=== PATIENT | male | born 1940 | race Caucasian/White ===

== ENCOUNTER → 2017-10-20 | Outpatient (CLI) | payer MEDICARE ==
--- NOTE | 2017-10-25 09:33 | RSPPFT ---
DATE OF PROCEDURE: 10/20/17 COMMENTS: Spirometry with FVC of 3.3 predicted 3.9, FEV1 of 2.3 predicted 3.1, [id number] ratio at 72% predicted 78%. Lung volumes show mild air trapping with RV at 2.9 predicted 2.5. DLCO is decreased to 53% of predicted. The FEF 25-75 is 1.5 predicted 3.0 implying mild obstructive lung defect with minimal air trapping. IMPRESSION:
== END ==
LOC: HRSP 12:55
PROVIDERS: ATTEND Internal Medicine Pulmonary Disease
DX: J45.909 Unspecified asthma, uncomplicated (principal)
CPT/HCPCS: 94060; 94618; 94726; 94729

== ENCOUNTER 2018-04-03 12:47 | Inpatient (IN) ==
--- NOTE | 2018-04-03 13:27 | ED ---
HPI General Chief Complaint: Fall Stated Complaint: Fall Time Seen by Provider: 04/03/18 13:05 Source: patient and EMS Mode of arrival: EMS Limitations: no limitations History of Present Illness HPI Narrative: 77-year-old male the presents to the ED for evaluation of right hip injury. Patient states that he was in a parking lot when he tripped and fell into his right hip. He denies hitting his head. He denies losing consciousness. He was not able to get up on his own. EVAC was called. Per EVAC there is rotation of the right leg and has a lot of pain with any movement. Patient himself declined any pain medication stating that his pain is not bad unless he is moved. Patient states that currently his pain is 4 out of 10. Per patient whenever he moves it does become 10 out of 10 and he can walk on it. He denies any numbness, drooling, weakness. No other injuries reported. No arm or leg pain. No back or neck pain. Denies any history of previous injuries to the hip. Per patient he does have a history of asthma but that the only other medical problem that he has. Takes no blood thinners. No other injuries reported. Has no orthopedic doctor. Related Data Home Medications Medication Instructions Recorded Confirmed fluticasone-salmeterol [Advair 1 puff INHALATION BID 04/03/18 04/03/18 Diskus] Allergies Allergy/AdvReac Type Severity Reaction Status Date / Time No Known Allergies Allergy Unverified 04/03/18 13:11 Review of Systems ROS: all other systems reviewed are negative [facility] Medical History Medical History Asthma (Acute) Surgical History Surgical History No history of previous surgery (Acute) Social History Social History Substance History: No History of Abuse Smoking Status: Former smoker How Often Do You Have a Drink Containing Alcohol: Never Recent Travel in [facility] within the Last 8 Weeks: No Recent Out of Country Travel within the Last 8 Weeks: No Immunization History Tetanus Immunization: Unsure Exam Narrative Exam Narrative: GENERAL: Well appearing SKIN: Focused skin assessment warm/dry. HEAD: Atraumatic. Normocephalic. EYES: Pupils equal and round. No scleral icterus. No injection or drainage. ENT: No nasal bleeding or discharge. Mucous membranes pink and moist. Tongue is midline. No uvula deviation. NECK: Trachea midline. No JVD. CARDIOVASCULAR: Regular rate and rhythm. No murmur appreciated. RESPIRATORY: No accessory muscle use. Clear to auscultation. Breath sounds equal bilaterally. GASTROINTESTINAL: Abdomen soft, non-tender, nondistended. Hepatic and splenic margins not palpable. MUSCULOSKELETAL: No obvious deformities. No clubbing. No cyanosis. No edema. Full range of motion of the most extremities with exception of the right hip. Patient has a lot of pain with any movement of the right hip. Patient does have what appears to be external rotation of the right hip. Sensation is intact bilaterally. Some shortening of the right leg compared to the left. Minimal however. 2+ pulses bilaterally. NEUROLOGICAL: Awake and alert. No obvious cranial nerve deficits. Motor grossly within normal limits. Normal speech. PSYCHIATRIC: Appropriate mood and affect; insight and judgment normal. Course Initial Documented Vital Signs Temperature 97.9 F 04/03/18 13:11 Pulse Rate 68 04/03/18 13:11 Respiratory Rate 17 04/03/18 13:11 Blood Pressure 179/95 H 04/03/18 13:11 Pulse Oximetry 97 04/03/18 13:11 Last Documented Vital Signs Temperature 97.9 F 04/03/18 13:11 Pulse Rate 68 04/03/18 15:05 Respiratory Rate 17 04/03/18 15:05 Blood Pressure 205/88 H 04/03/18 15:05 Pulse Oximetry 98 04/03/18 15:05 Medical Decision Making [facility] Narrative Medical decision making narrative: 77-year-old male the presents to the ED for evaluation of right leg injury. Patient was properly examined and was found to have signs and symptoms consistent with appears to be fracture. X-ray and labs were ordered. X-ray and labs showed right hip fracture. Otherwise unremarkable. Case discussed with my attending who agrees with plan. Case discussed with Dr. Caldera who states to keep patient for now n.p.o. as he could have surgery tonight. Case discussed with Dr. Dunn who agrees admission to her service. Patient was admitted for evaluation of the hip fracture. Medical Screen Exam Complete: Yes Emergency Medical Condition: Yes Differential Diagnosis Differential Diagnosis: Fracture versus bruise versus contusion versus dislocation Medical Records Medical records reviewed: Yes I reviewed the patient's medical records. Lab Data Lab results reviewed: Yes I reviewed the patient's lab results. Result diagrams: 04/03/18 13:20 04/03/18 13:20 Lab Results 04/03/18 04/03/18 04/03/18 Range/Units 13:20 13:20 13:20 WBC 5.5 (4.0-11.0) th/mm3 RBC 3.39 L (4.50-5.90) mil/mm3 Hgb 11.0 L (13.0-17.0) gm/dL Hct 32.6 L (39.0-51.0) % MCV 96.3 (80.0-100.0) fL MCH 32.3 (27.0-34.0) pg MCHC 33.6 (32.0-36.0) % RDW 14.8 (11.6-17.2) % Plt Count 131 L (150-450) th/mm3 MPV 7.9 (7.0-11.0) fL Neut % (Auto) 79.9 H (16.0-70.0) % Lymph % (Auto) 8.3 L (9.0-44.0) % [place] % (Auto) 6.9 (0.0-8.0) % Eos % (Auto) 4.4 H (0.0-4.0) % Baso % (Auto) 0.5 (0.0-2.0) % Neut # (Auto) 4.4 (1.8-7.7) th/mm3 Lymph # (Auto) 0.5 L (1.0-4.8) th/mm3 [place] # (Auto) 0.4 (0.0-0.9) th/mm3 Eos # (Auto) 0.2 (0.0-0.4) th/mm3 Baso # (Auto) 0.0 (0.0-0.2) th/mm3 WBC Differential . Differential Comment Auto diff final PT 11.4 (9.8-11.6) sec INR 1.1 Ratio APTT 26.8 (24.3-30.1) sec Sodium 142 (136-145) meq/L Potassium 5.0 (3.5-5.1) meq/L Chloride 110 H (98-107) meq/L Carbon Dioxide 25.1 (21.0-32.0) meq/L Anion Gap 7 (5-15) meq/L BUN 24 H (7-18) mg/dL Creatinine 1.67 H (0.60-1.30) mg/dL Estimated GFR 40 L (>89) mL/min Random Glucose 102 (74-106) mg/dL Calcium 8.2 L (8.5-10.1) mg/dL Imaging Data Attestation: I personally reviewed and interpreted this imaging study as follows : Radiologist's impression: Chest X-Ray 04/03/18 13:11 CONCLUSION: 1. Negative portable chest status post trauma. Hip X-Ray 04/03/18 13:11 CONCLUSION: 1. Right femoral intertrochanteric fracture, as above. ECG Data Attestation: I personally reviewed and interpreted this ECG as follows: Interpretation: EKG shows sinus rhythm with no sign of acute ischemia and arrhythmia. Read by me and attending. Discharge Plan Discharge Disposition Patient Disposition: 30 Still Patient Discharge Details Diagnosis: Closed hip fracture Physicians Team ED Provider: Jane Prajapati ED Midlevel Provider: Joshua Caldera Primary Care Provider: UNKNOWN, Attending Provider: Camilla Dunn Other Providers: Florentin Caldera Status ED Status: Admitted Patient
[2018-04-03 13:28] LABS: Baso % (Auto) 0.5 % (0.0-2.0); Eos # (Auto) 0.2 th/mm3 (0.0-0.4); Eos % (Auto) 4.4 % (0.0-4.0); Hematocrit 32.6 % (39.0-51.0); Lymph # (Auto) 0.5 th/mm3 (1.0-4.8); Lymph % (Auto) 8.3 % (9.0-44.0); Mean Corpuscular HGB Conc 33.6 % (32.0-36.0); Mean Corpuscular Hemoglobin 32.3 pg (27.0-34.0); Mean Corpuscular Volume 96.3 fL (80.0-100.0); Mean Platelet Volume 7.9 fL (7.0-11.0); Mono # (Auto) 0.4 th/mm3 (0.0-0.9); Mono % (Auto) 6.9 % (0.0-8.0); Neut # (Auto) 4.4 th/mm3 (1.8-7.7); Neut % (Auto) 79.9 % (16.0-70.0); Platelet Count 131 th/mm3 (150-450); Red Blood Count 3.39 mil/mm3 (4.50-5.90); Red Cell Distribution Width 14.8 % (11.6-17.2); White Blood Count 5.5 th/mm3 (4.0-11.0)
[2018-04-03 13:37] LABS: Activated Partial Thrombo Time 26.8 sec (24.3-30.1); INR 1.1 Ratio; Prothrombin Time 11.4 sec (9.8-11.6)
[2018-04-03 13:50] LABS: Calcium 8.2 mg/dL (8.5-10.1); Carbon Dioxide 25.1 meq/L (21.0-32.0)
--- NOTE | 2018-04-03 14:05 | XR ---
EXAM DATE: 04/03/2018 1:11 PM EDT AGE/SEX: 77 years / Male INDICATIONS: Trauma. Recent fall. CLINICAL DATA: This is the patient's initial encounter. Patient reports that signs and symptoms have been present for 1 day and indicates a pain score of 0/10. MEDICAL/SURGICAL HISTORY: Asthma. None. COMPARISON: No prior exams available for comparison. FINDINGS: A single AP view of the chest demonstrates the lungs to be symmetrically aerated without evidence of mass, infiltrate or effusion. The cardiomediastinal contours are unremarkable. Osseous structures a re intact. CONCLUSION: 1. Negative portable chest status post trauma. Electronically signed by: Blu Salazar MD 04/03/2018 2:03 PM EDT
--- NOTE | 2018-04-03 14:06 | XR ---
EXAM DATE: 04/03/2018 1:11 PM EDT AGE/SEX: 77 years / Male INDICATIONS: Right hip pain post fall. CLINICAL DATA: This is the patient's initial encounter. Patient reports that signs and symptoms have been present for 1 day and indicates a pain score of 10/10. MEDICAL/SURGICAL HISTORY: Asthma. None. COMPARISON: No prior exams available for comparison. FINDINGS: Nondisplaced intertrochanteric femoral fracture primarily centered about the lesser trochanter. Joint s are intact without dislocation or significant arthropathy. Osseous density is normal. Soft tissue s are unremarkable. No radiopaque foreign bodies seen. CONCLUSION: 1. Right femoral intertrochanteric fracture, as above. Electronically signed by: Blu Salazar MD 04/03/2018 2:04 PM EDT
[2018-04-03] MEDS ORDERED: Acetaminophen 325 MG Tablet PO PRN (14:52)
[2018-04-03] MEDS ORDERED: Bisacodyl 10 MG Supp RECTAL PRN (14:52)
[2018-04-03] MEDS ORDERED: Morphine Sulfate Inj 2 MG/ML Vial IV.PUSH PRN (14:54)
--- NOTE | 2018-04-03 14:58 | P.HP ---
History of Present Illness Service: Medicine Primary Care Physician: UNKNOWN Chief Complaint: Right hip injury History of Present Illness: The patient 77-year-old male with a history of asthm who presents to the ED for evaluation of right hip injury. Patient states that he was in his usual state of health at a parking lot when his foot caught on the tire, and he tripped and fell onto his right hip. He denied hitting his head or LOC, but was not able to get up on his own. EVAC was called. Per EVAC, there was rotation of the right leg and has a lot of pain with any movement. Patient declined any pain medication stating that his pain is not bad unless he is moved. Patient states that currently his pain is 3 out of 10. Pain is 10/10 with movement. Hip XR in the ED revealed right femoral intertrochanteric fracture. He denies any numbness, drooling, weakness. No other injuries reported. No arm or leg pain. No back or neck pain. Patient will be admitted for surgical intervention. PMHx: Asthma Hx of prostate cancer Surgical History: Parathyroid surgery Social History: Denies alcohol use Denies tobacco use Denies other substance use Family History: Mother - Liver disease Father - CAD Review of Systems All other systems reviewed negative except as stated in HPI [facility] - History History Provided By: Patient - Medical History Medical History: Medical History (Last Reviewed 04/03/18 @ 13:25 by FATMATA Jarvis) Asthma - Surgical History Surgical History: Surgical History (Last Reviewed 04/03/18 @ 13:25 by FATMATA Jarvis) No history of previous surgery - Tobacco History Smoking Status: Former smoker - Alcohol History How Often Do You Have a Drink Containing Alcohol: Never - Substance Use History Substance History: No History of Abuse - Travel History Recent Travel in the [place] Within the Last 8 Weeks: No Recent Travel Out of the Country Within the Last 8 Weeks: No - Immunization History Tetanus Immunization: Unsure Medications and Allergies Active Medications: Active Medications Acetaminophen (Tylenol) 650 mg PO Q4H PRN PRN Reason: Temp > 100.4 Hydrocodone Bitart/Acetaminophen ([place] 10/325) 1 tab PO Q4H PRN PRN Reason: pain 5-10 Hydrocodone Bitart/Acetaminophen ([place] 5/325) 1 tab PO Q4H PRN PRN Reason: pain 2-4 Al Hydroxide/Mg Hydroxide (Milk Of Magnesia Liq) 30 ml PO Q12H PRN PRN Reason: Mild Constipation Bisacodyl (Dulcolax Supp) 10 mg RECTAL DAILY PRN PRN Reason: SEVERE CONSITIPATION Sodium Chloride (Ns Inj) 1,000 mls @ 70 mls/hr IV.CONT .[id number] PADILLA Lactulose (Lactulose Liq) 30 ml PO DAILY PRN PRN Reason: SEVERE CONSITIPATION Morphine Sulfate (Morphine Inj) 2 mg IV.PUSH Q4H PRN PRN Reason: pain 2-10 if NPO or breakthrpo Non-Formulary Medication (Fluticasone-Salmeterol [Advair Diskus]) 1 puff INHALATION BID PADILLA Ondansetron HCl (Zofran Inj) 4 mg IV.PUSH Q6H PRN PRN Reason: NAUSEA OR VOMITING Senna/Docusate Sodium (Kinjal-Colace) 1 tab PO BID PADILLA Sennosides (Senokot) 17.2 mg PO Q12H PRN PRN Reason: Moderate Constipation Allergies Allergy/AdvReac Type Severity Reaction Status Date / Time No Known Allergies Allergy Unverified 04/03/18 13:11 Home Medications Medication Instructions Recorded Confirmed Type fluticasone-salmeterol [Advair 1 puff INHALATION BID 04/03/18 04/03/18 History Diskus] Exam Vital signs: Vital Signs 04/03/18 13:11 Temperature 97.9 F Pulse Rate 68 Respiratory Rate 17 Blood Pressure 179/95 H Pulse Oximetry 97 Intake & Output 04/02/18 04/03/18 04/03/18 18:59 06:59 18:59 Weight 90.718 kg Narrative: GENERAL: 77 year old male in NAD, alert and oriented. SKIN: Warm and dry. HEAD: Atraumatic. Normocephalic. EYES: Pupils equal and round. No scleral icterus. No injection or drainage. ENT: No nasal bleeding or discharge. Mucous membranes pink and moist. NECK: Trachea midline. No JVD. CARDIOVASCULAR: Regular rate and rhythm. RESPIRATORY: No accessory muscle use. Clear to auscultation. Breath sounds equal bilaterally. GASTROINTESTINAL: Abdomen soft, non-tender, nondistended. Hepatic and splenic margins not palpable. MUSCULOSKELETAL: Extremities without clubbing, cyanosis, or edema. Right lower extremity rotated. NEUROLOGICAL: Awake and alert. No obvious cranial nerve deficits. Motor grossly within normal limits. Five out of 5 muscle strength in the arms and legs. Normal speech. PSYCHIATRIC: Appropriate mood and affect; insight and judgment normal. Results - Labs CBC & Chem 7: 04/03/18 13:20 04/03/18 13:20 Labs: Laboratory Results - last 24 hr 04/03/18 04/03/18 04/03/18 13:20 13:20 13:20 WBC 5.5 RBC 3.39 L Hgb 11.0 L Hct 32.6 L MCV 96.3 MCH 32.3 MCHC 33.6 RDW 14.8 Plt Count 131 L MPV 7.9 Neut % (Auto) 79.9 H Lymph % (Auto) 8.3 L [place] % (Auto) 6.9 Eos % (Auto) 4.4 H Baso % (Auto) 0.5 Neut # (Auto) 4.4 Lymph # (Auto) 0.5 L [place] # (Auto) 0.4 Eos # (Auto) 0.2 Baso # (Auto) 0.0 WBC Differential . Differential Comment Auto diff final PT 11.4 INR 1.1 APTT 26.8 Sodium 142 Potassium 5.0 Chloride 110 H Carbon Dioxide 25.1 Anion Gap 7 BUN 24 H Creatinine 1.67 H Estimated GFR 40 L Random Glucose 102 Calcium 8.2 L - Imaging Impressions Chest X-Ray 04/03/18 13:11 CONCLUSION: 1. Negative portable chest status post trauma. Hip X-Ray 04/03/18 13:11 CONCLUSION: 1. Right femoral intertrochanteric fracture, as above. Caprini VTE Risk Assessment Caprini Risk Assessment Model: Point Value = 1 Point Value = 2 Point Value = 3 Point Value = 5 Age 41-60 Minor surgery BMI > 25 kg/m2 Swollen legs Varicose veins or History of unexplained or recurrent spontaneous Oral contraceptives or hormone replacement Sepsis (< 1 month) Serious lung disease, including pneumonia (< 1 month) Abnormal pulmonary function Acute myocardial infarction Congestive heart failure (< 1 month) History of inflammatory bowel disease Medical patient at bed rest Age 61-74 Arthroscopic surgery Major open surgery (> 45 min) Laparoscopic surgery (> 45 min) Malignancy Confined to bed (> 72 hours) Immobilizing plaster cast Central venous access Age >= 75 History of VTE Family history of VTE Factor V Leiden Prothrombin [id number] Lupus anticoagulant Anticardiolipin antibodies Elevated serum homocysteine Heparin-induced thrombocytopenia Other congenital or acquired thrombophilia Stroke (< 1 month) Elective arthroplasty Hip, pelvis, or leg fracture Acute spinal cord injury (< 1 month) Prophylaxis Regimen: Total Risk Factor Score Risk Level Prophylaxis Regimen 0-1 Low Early ambulation 2 Moderate Order ONE of the following: *Sequential Compression Device (SCD) *Heparin 5000 units SQ BID 3-4 Higher Order ONE of the following medications: *Heparin 5000 units SQ TID *Enoxaparin/Lovenox 40 mg SQ daily (WT < 150 kg, CrCl > 30 mL/min) *Enoxaparin/Lovenox 30 mg SQ daily (WT < 150 kg, CrCl > 10-29 mL/min) *Enoxaparin/Lovenox 30 mg SQ BID (WT < 150 kg, CrCl > 30 mL/min) AND/OR *Sequential Compression Device (SCD) 5 or more Highest Order ONE of the following medications: *Heparin 5000 units SQ TID (Preferred with Epidurals) *Enoxaparin/Lovenox 40 mg SQ daily (WT < 150 kg, CrCl > 30 mL/min) *Enoxaparin/Lovenox 30 mg SQ daily (WT < 150 kg, CrCl > 10-29 mL/min) *Enoxaparin/Lovenox 30 mg SQ BID (WT < 150 kg, CrCl > 30 mL/min) AND *Sequential Compression Device (SCD) Assessment and Plan - Plan Right hip fracture: Orthopedics consulted - Dr. Florentin Caldera Surgery tonight or tomorrow Pain well-controlled EKG Fall: Neuro checks, CBC, CMP Asthma: home meds as needed Code Status: Full Discussed Condition With: Patient, ED physician
--- NOTE | 2018-04-03 17:12 | P.HP ---
History of Present Illness Primary Care Physician: UNKNOWN Chief Complaint: Right hip injury History of Present Illness: The patient 77-year-old male with a history of asthm who presents to the ED for evaluation of right hip injury. Patient states that he was in his usual state of health at a parking lot when his foot caught on the tire, and he tripped and fell onto his right hip. He denied hitting his head or LOC, but was not able to get up on his own. EVAC was called. Per EVAC, there was rotation of the right leg and has a lot of pain with any movement. Patient declined any pain medication stating that his pain is not bad unless he is moved. Patient states that currently his pain is 3 out of 10. Pain is 10/10 with movement. Hip XR in the ED revealed right femoral intertrochanteric fracture. He denies any numbness, drooling, weakness. No other injuries reported. No arm or leg pain. No back or neck pain. Patient will be admitted for surgical intervention. PMHx: Asthma Hx of prostate cancer Surgical History: Parathyroid surgery Social History: Denies alcohol use Denies tobacco use Denies other substance use Family History: Mother - Liver disease Father - CAD Inpatient Certification: I certify that the inpatient services were ordered in accordance with Medicare regulations governing the order. This includes certification that hospital inpatient services are reasonable and necessary and in the case of services not specified as inpatient-only under 42 CFR 419.22(n), that they are appropriately provided as inpatient services in accordance to with the 2-midnight benchmark under 43 CFR 412.3(e) Estimated Total Length of Stay (Days): 3 Plans for Post Hospital Care: Not yet determined Review of Systems All other systems reviewed negative except as stated in HPI PMFSH - History History Provided By: Patient - Medical History Medical History: Medical History (Last Reviewed 04/03/18 @ 17:12 by Camilla Dunn MD) Asthma - Surgical History Surgical History: Surgical History (Last Reviewed 04/03/18 @ 17:12 by Camilla Dunn MD) No history of previous surgery - Tobacco History Smoking Status: Former smoker - Alcohol History How Often Do You Have a Drink Containing Alcohol: Never - Substance Use History Substance History: No History of Abuse - Travel History Recent Travel in the [place] Within the Last 8 Weeks: No Recent Travel Out of the Country Within the Last 8 Weeks: No - Immunization History Tetanus Immunization: Unsure Medications and Allergies Active Medications: Active Medications Acetaminophen (Tylenol) 650 mg PO Q4H PRN PRN Reason: Temp > 100.4 Hydrocodone Bitart/Acetaminophen (Lizella 10/325) 1 tab PO Q4H PRN PRN Reason: pain 5-10 Hydrocodone Bitart/Acetaminophen (Lizella 5/325) 1 tab PO Q4H PRN PRN Reason: pain 2-4 Al Hydroxide/Mg Hydroxide (Milk Of Magnesia Liq) 30 ml PO Q12H PRN PRN Reason: Mild Constipation Bisacodyl (Dulcolax Supp) 10 mg RECTAL DAILY PRN PRN Reason: SEVERE CONSITIPATION Budesonide/Formoterol Fumarate (Symbicort 80/4.5 Mcg Inh) 2 puff INH BID PADILLA Sodium Chloride (Ns Inj) 1,000 mls @ 70 mls/hr IV.CONT .[id number] PADILLA Lactulose (Lactulose Liq) 30 ml PO DAILY PRN PRN Reason: SEVERE CONSITIPATION Morphine Sulfate (Morphine Inj) 2 mg IV.PUSH Q4H PRN PRN Reason: pain 2-10 if NPO or breakthr Ondansetron HCl (Zofran Inj) 4 mg IV.PUSH Q6H PRN PRN Reason: NAUSEA OR VOMITING Senna/Docusate Sodium (Kinjal-Colace) 1 tab PO BID PADILLA Sennosides (Senokot) 17.2 mg PO Q12H PRN PRN Reason: Moderate Constipation Allergies Allergy/AdvReac Type Severity Reaction Status Date / Time No Known Allergies Allergy Unverified 04/03/18 13:11 Home Medications Medication Instructions Recorded Confirmed Type fluticasone-salmeterol [Advair 1 puff INHALATION BID 04/03/18 04/03/18 History Diskus] Exam Vital signs: Vital Signs 04/03/18 13:11 04/03/18 15:05 04/03/18 15:19 Temperature 97.9 F Pulse Rate 68 68 Respiratory Rate 17 17 Blood Pressure 179/95 H 205/88 H 188/77 H Pulse Oximetry 97 98 Intake & Output 04/02/18 04/03/18 04/03/18 18:59 06:59 18:59 Weight 90.718 kg Narrative: GENERAL: Pleasant 77 year old male in NAD, alert and oriented. SKIN: Warm and dry. HEAD: Atraumatic. Normocephalic. EYES: Pupils equal and round. No scleral icterus. No injection or drainage. ENT: No nasal bleeding or discharge. Mucous membranes pink and moist. NECK: Trachea midline. No JVD. CARDIOVASCULAR: Regular rate and rhythm. RESPIRATORY: No accessory muscle use. Clear to auscultation. Breath sounds equal bilaterally. GASTROINTESTINAL: Abdomen soft, non-tender, nondistended. Hepatic and splenic margins not palpable. MUSCULOSKELETAL: Extremities without clubbing, cyanosis, or edema. Right lower extremity externally rotated. NEUROLOGICAL: Awake and alert. No obvious cranial nerve deficits. Motor grossly within normal limits. Five out of 5 muscle strength in the arms and legs. Right leg not evaluated for strength. Neurovascular intact. Normal speech. PSYCHIATRIC: Appropriate mood and affect; insight and judgment normal. Results - Labs CBC & Chem 7: 04/03/18 13:20 04/03/18 13:20 Labs: Laboratory Results - last 24 hr 04/03/18 04/03/18 04/03/18 13:20 13:20 13:20 WBC 5.5 RBC 3.39 L Hgb 11.0 L Hct 32.6 L MCV 96.3 MCH 32.3 MCHC 33.6 RDW 14.8 Plt Count 131 L MPV 7.9 Neut % (Auto) 79.9 H Lymph % (Auto) 8.3 L [place] % (Auto) 6.9 Eos % (Auto) 4.4 H Baso % (Auto) 0.5 Neut # (Auto) 4.4 Lymph # (Auto) 0.5 L [place] # (Auto) 0.4 Eos # (Auto) 0.2 Baso # (Auto) 0.0 WBC Differential . Differential Comment Auto diff final PT 11.4 INR 1.1 APTT 26.8 Sodium 142 Potassium 5.0 Chloride 110 H Carbon Dioxide 25.1 Anion Gap 7 BUN 24 H Creatinine 1.67 H Estimated GFR 40 L Random Glucose 102 Calcium 8.2 L - Imaging Impressions Chest X-Ray 04/03/18 13:11 CONCLUSION: 1. Negative portable chest status post trauma. Hip X-Ray 04/03/18 13:11 CONCLUSION: 1. Right femoral intertrochanteric fracture, as above. Caprini VTE Risk Assessment Caprini VTE Risk Assessment: Moderate/High Risk (score >= 2) Caprini Risk Assessment Model: Point Value = 1 Point Value = 2 Point Value = 3 Point Value = 5 Age 41-60 Minor surgery BMI > 25 kg/m2 Swollen legs Varicose veins or History of unexplained or recurrent spontaneous Oral contraceptives or hormone replacement Sepsis (< 1 month) Serious lung disease, including pneumonia (< 1 month) Abnormal pulmonary function Acute myocardial infarction Congestive heart failure (< 1 month) History of inflammatory bowel disease Medical patient at bed rest Age 61-74 Arthroscopic surgery Major open surgery (> 45 min) Laparoscopic surgery (> 45 min) Malignancy Confined to bed (> 72 hours) Immobilizing plaster cast Central venous access Age >= 75 History of VTE Family history of VTE Factor V Leiden Prothrombin [id number] Lupus anticoagulant Anticardiolipin antibodies Elevated serum homocysteine Heparin-induced thrombocytopenia Other congenital or acquired thrombophilia Stroke (< 1 month) Elective arthroplasty Hip, pelvis, or leg fracture Acute spinal cord injury (< 1 month) Prophylaxis Regimen: Total Risk Factor Score Risk Level Prophylaxis Regimen 0-1 Low Early ambulation 2 Moderate Order ONE of the following: *Sequential Compression Device (SCD) *Heparin 5000 units SQ BID 3-4 Higher Order ONE of the following medications: *Heparin 5000 units SQ TID *Enoxaparin/Lovenox 40 mg SQ daily (WT < 150 kg, CrCl > 30 mL/min) *Enoxaparin/Lovenox 30 mg SQ daily (WT < 150 kg, CrCl > 10-29 mL/min) *Enoxaparin/Lovenox 30 mg SQ BID (WT < 150 kg, CrCl > 30 mL/min) AND/OR *Sequential Compression Device (SCD) 5 or more Highest Order ONE of the following medications: *Heparin 5000 units SQ TID (Preferred with Epidurals) *Enoxaparin/Lovenox 40 mg SQ daily (WT < 150 kg, CrCl > 30 mL/min) *Enoxaparin/Lovenox 30 mg SQ daily (WT < 150 kg, CrCl > 10-29 mL/min) *Enoxaparin/Lovenox 30 mg SQ BID (WT < 150 kg, CrCl > 30 mL/min) AND *Sequential Compression Device (SCD) Assessment and Plan - Plan Right hip fracture: Orthopedics consulted - Dr. Florentin Caldera Surgery tonight or tomorrow Pain well-controlled EKG Fall: Neuro checks, CBC, CMP Asthma: home meds as needed DVT ppx SCD/TEDs , chemical ppx per surgeon Code Status: Full Discussed Condition With: Patient, ED physician
[2018-04-03] MEDS: Sod Chloride 0.9% Inj 1,000 ML IV.CONT SCH (18:21)
[2018-04-03] MEDS: Senna/Docusate Sodium 8.6/50 MG Tablet PO SCH (20:42)
[2018-04-03] MEDS: Budesonide-Formoterol 80/4.5 MCG 6.9 GM Inhaler INH SCH (20:42)
[2018-04-03] MEDS ORDERED: Non-Formulary Drug (Fluticasone-Salmeterol [Advair Diskus] 1 PUFF) INHALATION SCH (21:00)
[2018-04-03] MEDS ORDERED: Chlorhexidine Gluconate 2% 1 Pack (2 Cloths) TOPICAL ONE (22:48)
[2018-04-03] MEDS ORDERED: Metoprolol Tartrate 25 MG Tablet PO ONE (22:48)
[2018-04-03] MEDS ORDERED: Sodium Chlor 0.9% Inj 500 ML IV.SIG SCH (23:00)
[2018-04-04 05:17] LABS: Carbon Dioxide 26.3 meq/L (21.0-32.0)
[2018-04-04 05:18] LABS: Baso % (Auto) 0.3 % (0.0-2.0); Eos # (Auto) 0.1 th/mm3 (0.0-0.4); Eos % (Auto) 1.9 % (0.0-4.0); Hematocrit 27.3 % (39.0-51.0); Hemoglobin 9.5 gm/dL (13.0-17.0); Lymph # (Auto) 0.5 th/mm3 (1.0-4.8); Lymph % (Auto) 8.3 % (9.0-44.0); Mean Corpuscular HGB Conc 34.7 % (32.0-36.0); Mean Corpuscular Hemoglobin 32.7 pg (27.0-34.0); Mean Corpuscular Volume 94.3 fL (80.0-100.0); Mean Platelet Volume 8.3 fL (7.0-11.0); Mono # (Auto) 0.6 th/mm3 (0.0-0.9); Mono % (Auto) 10.2 % (0.0-8.0); Neut # (Auto) 4.4 th/mm3 (1.8-7.7); Neut % (Auto) 79.3 % (16.0-70.0); Platelet Count 121 th/mm3 (150-450); Red Cell Distribution Width 14.5 % (11.6-17.2); White Blood Count 5.6 th/mm3 (4.0-11.0)
[2018-04-04] MEDS: Sod Chloride 0.9% Inj 1,000 ML IV.CONT SCH ×2 (05:21→22:23)
--- NOTE | 2018-04-04 06:42 | P.PNOP ---
Subjective Interval history: s/p fall right hip pain. no other complaints. Physical Exam Vital signs: Vital Signs 04/03/18 13:11 04/03/18 15:05 04/03/18 15:19 Temperature 97.9 F Pulse Rate 68 68 Respiratory Rate 17 17 Blood Pressure 179/95 H 205/88 H 188/77 H Pulse Oximetry 97 98 04/03/18 17:06 04/03/18 18:15 04/03/18 19:00 Temperature 98.3 F Pulse Rate 73 74 Respiratory Rate 14 14 24 Blood Pressure 165/74 H 164/72 H Pulse Oximetry 98 98 04/03/18 20:00 04/03/18 23:26 04/04/18 04:00 Temperature 98.1 F 98.7 F 98.6 F Pulse Rate 72 78 74 Respiratory Rate 16 18 16 Blood Pressure 155/68 H 157/65 H 174/70 H Pulse Oximetry 96 96 94 L Intake & Output 04/03/18 04/03/18 04/04/18 06:59 18:59 06:59 Intake Total 0 / 0 Output Total 100 / 100 Balance -100 / -100 Weight 90.718 kg 91.2 kg Intake: Oral 0 / 0 Output: Urine 100 / 100 Other: Date of Last Bowel Movement 04/02/18 Weight On Admission 90.718 kg Narrative: RLE: hip externally rotated. nvi distally Results - Labs CBC & Chem 7: 04/04/18 03:44 04/04/18 03:44 Laboratory Results - last 24 hr 04/03/18 04/03/18 04/03/18 13:20 13:20 13:20 WBC 5.5 RBC 3.39 L Hgb 11.0 L Hct 32.6 L MCV 96.3 MCH 32.3 MCHC 33.6 RDW 14.8 Plt Count 131 L MPV 7.9 Neut % (Auto) 79.9 H Lymph % (Auto) 8.3 L [place] % (Auto) 6.9 Eos % (Auto) 4.4 H Baso % (Auto) 0.5 Neut # (Auto) 4.4 Lymph # (Auto) 0.5 L [place] # (Auto) 0.4 Eos # (Auto) 0.2 Baso # (Auto) 0.0 WBC Differential . Differential Comment Auto diff final PT 11.4 INR 1.1 APTT 26.8 Sodium 142 Potassium 5.0 Chloride 110 H Carbon Dioxide 25.1 Anion Gap 7 BUN 24 H Creatinine 1.67 H Estimated GFR 40 L Random Glucose 102 Calcium 8.2 L Blood Type Blood Type Recheck Antibody Screen 04/04/18 04/04/18 04/04/18 03:44 03:44 03:44 WBC 5.6 RBC 2.90 L Hgb 9.5 L Hct 27.3 L MCV 94.3 MCH 32.7 MCHC 34.7 RDW 14.5 Plt Count 121 L MPV 8.3 Neut % (Auto) 79.3 H Lymph % (Auto) 8.3 L [place] % (Auto) 10.2 H Eos % (Auto) 1.9 Baso % (Auto) 0.3 Neut # (Auto) 4.4 Lymph # (Auto) 0.5 L [place] # (Auto) 0.6 Eos # (Auto) 0.1 Baso # (Auto) 0.0 WBC Differential . Differential Comment Auto diff final PT INR APTT Sodium Potassium Chloride Carbon Dioxide 26.3 Anion Gap BUN 23 H Creatinine 1.53 H Estimated GFR 45 L Random Glucose 118 H Calcium 8.0 L Blood Type O Positive Blood Type Recheck Antibody Screen Negative - Imaging Impressions Chest X-Ray 04/03/18 13:11 CONCLUSION: 1. Negative portable chest status post trauma. Hip X-Ray 04/03/18 13:11 CONCLUSION: 1. Right femoral intertrochanteric fracture, as above. Assessment and Plan - Assessment and Plan 1) Right Intertrochanteric Hip Fx -npo -consents -surgery today with David for IMN right hip E-FORCSE Prescription Drug Monitoring Database has been queried and verified prior to prescribing the controlled substance. Acute pain exception. This patient has normal, predicted, physiological, and time limited response to an adverse mechanical stimulus associated with surgery, trauma, or acute illness as described in my notes. There is a lack of alternative treatment options other than to include the prescribed narcotic treatment for this condition.
[2018-04-04 06:50] LABS: Potassium 4.7 meq/L (3.5-5.1)
[2018-04-04] MEDS: Budesonide-Formoterol 80/4.5 MCG 6.9 GM Inhaler INH SCH ×2 (08:32→21:10)
--- NOTE | 2018-04-04 08:40 | P.PN ---
Subjective Interval history: Resting comofrtably in bed. No concerns. Surgery today. No nvd, chest pain, SOB, fever, chills/ Physical Exam Vital signs: Vital Signs 04/03/18 13:11 04/03/18 15:05 04/03/18 15:19 Temperature 97.9 F Pulse Rate 68 68 Respiratory Rate 17 17 Blood Pressure 179/95 H 205/88 H 188/77 H Pulse Oximetry 97 98 04/03/18 17:06 04/03/18 18:15 04/03/18 19:00 Temperature 98.3 F Pulse Rate 73 74 Respiratory Rate 14 14 24 Blood Pressure 165/74 H 164/72 H Pulse Oximetry 98 98 04/03/18 20:00 04/03/18 23:26 04/04/18 04:00 Temperature 98.1 F 98.7 F 98.6 F Pulse Rate 72 78 74 Respiratory Rate 16 18 16 Blood Pressure 155/68 H 157/65 H 174/70 H Pulse Oximetry 96 96 94 L 04/04/18 07:45 Temperature 97.9 F Pulse Rate 75 Respiratory Rate 18 Blood Pressure 138/79 Pulse Oximetry 97 Intake & Output 04/03/18 04/04/18 04/04/18 18:59 06:59 18:59 Intake Total 0 / 0 Output Total 100 / 100 Balance -100 / -100 Weight 90.718 kg 91.2 kg Intake: Oral 0 / 0 Output: Urine 100 / 100 Other: Date of Last Bowel Movement 04/02/18 Weight On Admission 90.718 kg Narrative: GENERAL: 77 year old male in NAD SKIN: Warm and dry. HEAD: Atraumatic. Normocephalic. EYES: Pupils equal and round. No scleral icterus. No injection or drainage. ENT: No nasal bleeding or discharge. Mucous membranes pink and moist. NECK: Trachea midline. No JVD. CARDIOVASCULAR: Regular rate and rhythm. RESPIRATORY: No accessory muscle use. Clear to auscultation. Breath sounds equal bilaterally. GASTROINTESTINAL: Abdomen soft, non-tender, nondistended. Hepatic and splenic margins not palpable. MUSCULOSKELETAL: Extremities without clubbing, cyanosis, or edema. Right lower extremity externally rotated. Neurovascularly intact NEUROLOGICAL: Awake and alert. No obvious cranial nerve deficits. Motor grossly within normal limits. Five out of 5 muscle strength in the arms and legs. Right leg not assessed. Normal speech. PSYCHIATRIC: Appropriate mood and affect; insight and judgment normal. Results - Labs CBC & Chem 7: 04/04/18 03:44 04/04/18 03:44 Laboratory Results - last 24 hr 04/03/18 04/03/18 04/03/18 13:20 13:20 13:20 WBC 5.5 RBC 3.39 L Hgb 11.0 L Hct 32.6 L MCV 96.3 MCH 32.3 MCHC 33.6 RDW 14.8 Plt Count 131 L MPV 7.9 Neut % (Auto) 79.9 H Lymph % (Auto) 8.3 L [place] % (Auto) 6.9 Eos % (Auto) 4.4 H Baso % (Auto) 0.5 Neut # (Auto) 4.4 Lymph # (Auto) 0.5 L [place] # (Auto) 0.4 Eos # (Auto) 0.2 Baso # (Auto) 0.0 WBC Differential . Differential Comment Auto diff final PT 11.4 INR 1.1 APTT 26.8 Sodium 142 Potassium 5.0 Chloride 110 H Carbon Dioxide 25.1 Anion Gap 7 BUN 24 H Creatinine 1.67 H Estimated GFR 40 L Random Glucose 102 Calcium 8.2 L Blood Type Blood Type Recheck Antibody Screen 04/04/18 04/04/18 04/04/18 03:44 03:44 03:44 WBC 5.6 RBC 2.90 L Hgb 9.5 L Hct 27.3 L MCV 94.3 MCH 32.7 MCHC 34.7 RDW 14.5 Plt Count 121 L MPV 8.3 Neut % (Auto) 79.3 H Lymph % (Auto) 8.3 L [place] % (Auto) 10.2 H Eos % (Auto) 1.9 Baso % (Auto) 0.3 Neut # (Auto) 4.4 Lymph # (Auto) 0.5 L [place] # (Auto) 0.6 Eos # (Auto) 0.1 Baso # (Auto) 0.0 WBC Differential . Differential Comment Auto diff final PT INR APTT Sodium 140 Potassium 4.7 Chloride 107 Carbon Dioxide 26.3 Anion Gap 9 BUN 23 H Creatinine 1.53 H Estimated GFR 45 L Random Glucose 118 H Calcium 8.0 L Blood Type O Positive Blood Type Recheck Antibody Screen Negative - Imaging Impressions Chest X-Ray 04/03/18 13:11 CONCLUSION: 1. Negative portable chest status post trauma. Hip X-Ray 04/03/18 13:11 CONCLUSION: 1. Right femoral intertrochanteric fracture, as above. Assessment and Plan - Assessment (1) Closed hip fracture Code(s): S72.009A - Fracture of unspecified part of neck of unspecified femur, initial encounter for closed fracture Status: Acute - Plan Right hip fracture: Orthopedics consulted - Dr. Florentin Caldera Surgery today Pain well-controlled EKG Fall: Neuro checks, CBC, CMP Asthma: home meds as needed Code Status: Full Discharge Planning: Surgery today, ortho clearance. (1) Closed hip fracture Qualifiers: Qualified Code(s): S72.001A - Fracture of unspecified part of neck of right femur, initial encounter for closed fracture
[2018-04-04] MEDS: Senna/Docusate Sodium 8.6/50 MG Tablet PO SCH ×2 (10:20→21:09)
[2018-04-04] MEDS ORDERED: ceFAZolin 1 GM Premix Inj 0 GM/0 ML FROZ.PIGGY IV.SIG ONE (11:31)
[2018-04-04] MEDS ORDERED: Bupivacaine/Epinephrine Inj 0.25% 50 ML Vial ONE (11:36)
[2018-04-04] MEDS ORDERED: ceFAZolin 2 GM Premix Inj 2 GM/50 ML PIGGYBACK IV.SIG ONE (11:42)
[2018-04-04] MEDS ORDERED: Post-op Orders (for Pharmacy) OTHER STA (13:07)
[2018-04-04] MEDS ORDERED: Morphine Inj 4 MG/ML Vial IV.PUSH PRN (13:07)
--- NOTE | 2018-04-04 13:11 | P.OP ---
- Preoperative Diagnosis (1) Closed intertrochanteric fracture of right femur Procedure: Right hip reduction and intramedullary nail fixation Anesthesia: GETA Surgeon: Lucio Mckeon MD Patrol Commander: MORTEZA Altamirano PA-C The surgical procedure was assisted by my physician accounting assistant. My P.A. presence was necessary throughout this case for the manipulation and positioning of the surgical extremity. My P.A. was assisting me throughout the duration of this procedure. The skill set of a physician accounting assistant was medically necessary to complete this procedure. During the surgical case the healthcare technician was working at the back table and the physician accounting assistant was directly assisting me. Operation and Findings: Implants used: Anna 11.5 mm x 420 mm 125 degree troch nail Plan of activity: 50% weightbearing right leg Patient was seen and evaluated preoperatively. The patient has significant hip pain from proximal femur fracture. The risk and benefits of surgery were discussed in depth with the patient to include bleeding, infection, nonunion, malunion, need for hip replacement, painful hardware, as well as medical competitions including blood clots, stroke, heart attack, and . Informed consent was obtained. Operative site was marked. Patient was brought to the operating room and placed on fracture table. IV sedation was administered by anesthesiologist. Timeout procedure was performed. Hip and leg were prepped with alcohol followed by DuraPrep and draped in the usual sterile fashion. IV antibiotics were given prior to incision. Procedure began with reduction of fracture. Traction was applied. The leg was manipulated to achieve reduction. Excellent reduction was achieved. Fluoroscopy was used to confirm reduction. A three inch incision was made proximal to the trochanter. Subcutaneous tissue was dissected bluntly. Guidepin was placed at the tip of the trochanter and advanced into the femoral canal. Fluoroscopy confirmed appropriate guidepin placement. A opening reamer was placed over the guidepin. A long ball tipped guide pin was now placed down the femoral canal into the center of the distal femur. The nail length was now measured. Fluoroscopy confirmed appropriate guidepin placement. Flexible reamers were now passed over the guidepin to ream the intramedullary canal. The nail was attached to the insertion handle. Nail was now placed over the guidepin into the femoral canal. Fluoroscopy confirmed appropriate nail placement. A second incision was made over the lateral thigh. Cannulas were placed through the insertion handle down to the femur. Guidepin was now placed through the femoral nail into the center of the femoral head. Fluoroscopy confirmed appropriate guidepin placement. Screw length was measured. Cannulated drill was placed over the guidepin. Appropriate length lag screw was now placed. Traction was released and compression was applied. The set screw was now tightened in dynamic mode. Next, using perfect [place] technique 1 distal interlocking screw was placed. Screw holes were predrilled and screw lengths were measured. Final fluoroscopy revealed well aligned fracture with well-placed hardware. Incision was closed with 3-0 Vicryl and stacie. Sterile dressings were applied. Patient was awakened and transferred to recovery room.
--- NOTE | 2018-04-04 13:14 | P.CONOP ---
[facility] Orthopedics Consult Note - [facility] Consult date: 04/04/18 Chief complaint: Acute right intratrochanteric fracture Narrative: Michael is a 77-year-old male. He presented to the emergency room after having a fall. He was walking in a parking lot when his foot caught on a tire. He describes a mechanical fall. He landed on his right side. He had immediate right hip pain. He was unable to stand or ambulate. He presented the emergency room where x-rays revealed a displaced right proximal femur fracture. He is currently awake alert on the orthopedic floor. His only complaint is right hip. Pain is severe and intense with movement. Pain is improved with rest. He denies dizziness, syncope, or loss of consciousness. Review of Systems Patient denies fevers, chills, weight loss, headache, visual changes, hearing loss, chest pain, palpitations, shortness of breath, nausea, vomiting, no urinary changes, diarrhea, bowel changes, neck pain, back pain, skin rashes, weakness of extremities, easy bleeding, enlarged lymph nodes, numbness of extremities, anxiety, or depression. He complains of right hip pain Patient's social history, past medical history, and family history were reviewed on chart and with patient. [facility] - History History Provided By: Patient - Medical History Medical History: Medical History (Last Reviewed 04/04/18 @ 13:12 by Lucio Mckeon MD) Asthma - Surgical History Surgical History: Surgical History (Last Reviewed 04/04/18 @ 13:12 by Lucio Mckeon MD) No history of previous surgery - Family History Family History: Family History (Last Updated 04/04/18 @ 13:12 by Lucio Mckeon MD) Other Family history non-contributory - Social History I have reviewed the patient's Social History: Yes - Tobacco History Second Hand Smoke Exposure: No Smoking Status: Former smoker - Alcohol History How Often Do You Have a Drink Containing Alcohol: Never - Substance Use History Substance History: No History of Abuse - Travel History Recent Travel in the [place] Within the Last 8 Weeks: No Recent Travel Out of the Country Within the Last 8 Weeks: No - Immunization History Tetanus Immunization: Unsure Medications and Allergies Active Medications: Active Medications Acetaminophen (Tylenol) 650 mg PO Q4H PRN PRN Reason: Temp > 100.4 Hydrocodone Bitart/Acetaminophen ([place] 10/325) 1 tab PO Q4H PRN PRN Reason: pain 5-10 Hydrocodone Bitart/Acetaminophen ([place] 5/325) 1 tab PO Q4H PRN PRN Reason: pain 2-4 Hydrocodone Bitart/Acetaminophen ([place] 7.5/325) 1 tab PO Q3H PRN PRN Reason: Pain Scale 3-10 Al Hydroxide/Mg Hydroxide (Milk Of Magnesia Liq) 30 ml PO Q12H PRN PRN Reason: Mild Constipation Bisacodyl (Dulcolax Supp) 10 mg RECTAL DAILY PRN PRN Reason: SEVERE CONSITIPATION Budesonide/Formoterol Fumarate (Symbicort 80/4.5 Mcg Inh) 2 puff INH BID [facility] Last Admin: 04/04/18 08:32 Dose: Not Given Calcium/Vitamin D (Oscal With D 250/125 Mg) 1 tab PO TID [place] Diphenhydramine HCl (Benadryl) 25 mg PO Q6H PRN PRN Reason: ITCHING Enoxaparin Sodium (Lovenox Inj) 30 mg SQ Q24H [place] Ergocalciferol (Vitamin D2) 50,000 unit PO ONCE ONE Stop: 04/04/18 13:08 Sodium Chloride (Ns Inj) 1,000 mls @ 70 mls/hr IV.CONT .[id number] [facility] Last Admin: 04/04/18 05:21 Dose: Not Given Lactated Ringer's (Lr 1000 Ml Inj) 1,000 mls @ 30 mls/hr IV.SIG .Q24H [facility] Stop: 04/04/18 22:59 Last Admin: 04/04/18 09:30 Dose: 30 mls/hr Sodium Chloride (Ns Inj) 500 mls @ 30 mls/hr IV.SIG .Q10H [facility] Last Admin: 04/04/18 05:22 Dose: Not Given Cefazolin Sodium 1,000 mg/ (Sodium Chloride) 100 mls @ 200 mls/hr IV.SIG Q8H [facility] Stop: 04/05/18 06:29 Lactulose (Lactulose Liq) 30 ml PO DAILY PRN PRN Reason: SEVERE CONSITIPATION Miscellaneous Information (Misc Post-Op Orders (For Pharmacy)) 0 each OTHER STAT STA Stop: 04/04/18 13:08 Morphine Sulfate (Morphine Inj) 2 mg IV.PUSH Q4H PRN PRN Reason: pain 2-10 if NPO or breakthr Last Admin: 04/04/18 08:57 Dose: 2 mg Morphine Sulfate (Morphine Inj) 3 mg IV.PUSH Q3H PRN PRN Reason: BREAKTHROUGH PAIN Ondansetron HCl (Zofran Inj) 4 mg IV.PUSH Q6H PRN PRN Reason: NAUSEA OR VOMITING Ondansetron HCl (Zofran Inj) 4 mg IV.PUSH Q6H PRN PRN Reason: NAUSEA Senna/Docusate Sodium (Kinjal-Colace) 1 tab PO BID [facility] Last Admin: 04/04/18 10:20 Dose: Not Given Sennosides (Senokot) 17.2 mg PO Q12H PRN PRN Reason: Moderate Constipation Sodium Chloride (Ns Flush) 2 ml IV.FLUSH BID [facility] Sodium Chloride (Ns Flush) 2 ml IV.FLUSH PRN PRN PRN Reason: FLUSH AFTER USING IV ACCESS Vitamin D (Vitamin D3) 5,000 unit PO DAILY [facility] Allergies Allergy/AdvReac Type Severity Reaction Status Date / Time No Known Allergies Allergy Unverified 04/03/18 13:11 Home Medications Medication Instructions Recorded Confirmed Type fluticasone-salmeterol [Advair 1 puff INHALATION BID 04/03/18 04/03/18 History Diskus] Exam Vital signs: Vital Signs 04/03/18 15:05 04/03/18 15:19 04/03/18 17:06 Temperature Pulse Rate 68 Respiratory Rate 17 14 Blood Pressure 205/88 H 188/77 H Pulse Oximetry 98 04/03/18 18:15 04/03/18 19:00 04/03/18 20:00 Temperature 98.3 F 98.1 F Pulse Rate 73 74 72 Respiratory Rate 14 24 16 Blood Pressure 165/74 H 164/72 H 155/68 H Pulse Oximetry 98 98 96 04/03/18 23:26 04/04/18 04:00 04/04/18 07:45 Temperature 98.7 F 98.6 F 97.9 F Pulse Rate 78 74 75 Respiratory Rate 18 16 18 Blood Pressure 157/65 H 174/70 H 138/79 Pulse Oximetry 96 94 L 97 Intake & Output 04/03/18 04/04/18 04/04/18 18:59 06:59 18:59 Intake Total 0 / 0 Output Total 100 / 100 Balance -100 / -100 Weight 90.718 kg 91.2 kg Intake: Oral 0 / 0 Output: Urine 100 / 100 Other: Date of Last Bowel Movement 04/02/18 04/03/18 Weight On Admission 90.718 kg Narrative: Michael is a 77-year-old male. General: Awake and alert. No acute distress. Appears well-developed well- nourished Head: Normocephalic, atraumatic pupils are equal Neck: Soft, nontender, trachea midline Abdomen: Soft, nondistended Examination of right arm reveals no pain or deformity with shoulder, elbow, or wrist motion. Skin is intact. Radial pulse is palpable. Normal capillary refill in fingers. Sensation is intact in radial, ulnar, and median nerve distributions. Flight Director strength is +5. No lymphadenopathy noted. Examination of left arm reveals no pain or deformity with shoulder, elbow, or wrist motion. Skin is intact. Radial pulse is palpable. Normal capillary refill in fingers. Sensation is intact in radial, ulnar, and median nerve distributions. Flight Director strength is +5. No lymphadenopathy noted. Examination of left lower extremity reveals no pain or deformity with hip, knee , or ankle motion. Skin is intact. Sensation is intact in left foot. Dorsalis pedis pulse is palpable. Normal capillary refill and feet. Thigh and calf compartments are soft. No lymphadenopathy noted. +5 strength of ankle dorsiflexion and plantarflexion. Examination of right lower extremity pain with any hip motion. His right leg is shortened and externally rotated. He has no tenderness around his knee, tibia, or ankle. Skin is intact. Sensation is intact in right foot. Dorsalis pedis pulse is palpable. Normal capillary refill and feet. Thigh and calf compartments are soft. No lymphadenopathy noted. +5 strength of ankle dorsiflexion and plantarflexion. Results - Labs Result Diagrams: 04/04/18 03:44 04/04/18 03:44 Labs: Laboratory Results - last 24 hr 04/03/18 04/03/18 04/03/18 13:20 13:20 13:20 WBC 5.5 RBC 3.39 L Hgb 11.0 L Hct 32.6 L MCV 96.3 MCH 32.3 MCHC 33.6 RDW 14.8 Plt Count 131 L MPV 7.9 Neut % (Auto) 79.9 H Lymph % (Auto) 8.3 L [place] % (Auto) 6.9 Eos % (Auto) 4.4 H Baso % (Auto) 0.5 Neut # (Auto) 4.4 Lymph # (Auto) 0.5 L [place] # (Auto) 0.4 Eos # (Auto) 0.2 Baso # (Auto) 0.0 WBC Differential . Differential Comment Auto diff final PT 11.4 INR 1.1 APTT 26.8 Sodium 142 Potassium 5.0 Chloride 110 H Carbon Dioxide 25.1 Anion Gap 7 BUN 24 H Creatinine 1.67 H Estimated GFR 40 L Random Glucose 102 Calcium 8.2 L Blood Type Blood Type Recheck Antibody Screen 04/04/18 04/04/18 04/04/18 03:44 03:44 03:44 WBC 5.6 RBC 2.90 L Hgb 9.5 L Hct 27.3 L MCV 94.3 MCH 32.7 MCHC 34.7 RDW 14.5 Plt Count 121 L MPV 8.3 Neut % (Auto) 79.3 H Lymph % (Auto) 8.3 L [place] % (Auto) 10.2 H Eos % (Auto) 1.9 Baso % (Auto) 0.3 Neut # (Auto) 4.4 Lymph # (Auto) 0.5 L [place] # (Auto) 0.6 Eos # (Auto) 0.1 Baso # (Auto) 0.0 WBC Differential . Differential Comment Auto diff final PT INR APTT Sodium 140 Potassium 4.7 Chloride 107 Carbon Dioxide 26.3 Anion Gap 9 BUN 23 H Creatinine 1.53 H Estimated GFR 45 L Random Glucose 118 H Calcium 8.0 L Blood Type O Positive Blood Type Recheck Antibody Screen Negative - Diagnostic results Imaging: Impressions Chest X-Ray 04/03/18 13:11 CONCLUSION: 1. Negative portable chest status post trauma. Hip X-Ray 04/03/18 13:11 CONCLUSION: 1. Right femoral intertrochanteric fracture, as above. Hip x-ray: report reviewed, image reviewed Assessment and Plan - Assessment and Plan Michael has a displaced right hip intertrochanteric fracture. Treatment options were discussed. At this point I would recommend surgical reduction and intramedullary nail fixation. The risk and benefits of surgery were discussed in depth with patient. All of his questions were answered. Informed consent was obtained. The risk and benefits of surgery were discussed in depth with patient. The risk of surgery include bleeding, infection, injuries to arteries, nerves, or blood vessels, infection, wound complications, nonunion, malunion, painful hardware, and need for further surgery. I also discussed medical complications including blood clots, pneumonia, stroke, heart attack, and . Informed consent was obtained and all questions were answered. N.p.o.--plan on surgery today Calcium and vitamin D supplementation Physical therapy consult--50% weightbearing right leg Follow-up with Dr. Mckeon in 2 weeks JONATHANs, Adrien Muñoz A mid-level provider in my office (nurse practitioner or physician assistant professor of nursing) may see this patient on follow-up visits and continue to implement the objectives of this plan including: Starting or adjusting medications, injections , cast application, orthotics, brace application, physical therapy, radiological studies (including x-ray, MRI, CT, ultrasound, bone scan), vascular studies, neurologic studies, specialist consultation, and proceeding with surgical management, as appropriate. Material Mix Prescription Drug Monitoring Database has been queried and verified prior to prescribing the controlled substance. Acute pain exception. This patient has normal, predicted, physiological, and time limited response to an adverse mechanical stimulus associated with surgery, trauma, or acute illness as described in my notes. There is a lack of alternative treatment options other than to include the prescribed narcotic treatment for this condition.
[2018-04-04] MEDS ORDERED: fentaNYL Citrate Inj 100 MCG/2 ML Ampul ONE (13:33)
--- NOTE | 2018-04-04 14:13 | P.PN ---
Subjective Interval history: For surgery No events overnight Pain is controlled by meds Satting well on room air Physical Exam Vital signs: Vital Signs 04/03/18 15:05 04/03/18 15:19 04/03/18 17:06 Temperature Pulse Rate 68 Respiratory Rate 17 14 Blood Pressure 205/88 H 188/77 H Pulse Oximetry 98 04/03/18 18:15 04/03/18 19:00 04/03/18 20:00 Temperature 98.3 F 98.1 F Pulse Rate 73 74 72 Respiratory Rate 14 24 16 Blood Pressure 165/74 H 164/72 H 155/68 H Pulse Oximetry 98 98 96 04/03/18 23:26 04/04/18 04:00 04/04/18 07:45 Temperature 98.7 F 98.6 F 97.9 F Pulse Rate 78 74 75 Respiratory Rate 18 16 18 Blood Pressure 157/65 H 174/70 H 138/79 Pulse Oximetry 96 94 L 97 Intake & Output 04/03/18 04/04/18 04/04/18 18:59 06:59 18:59 Intake Total 0 / 0 500 / 500 Output Total 100 / 100 25 / 25 Balance -100 / -100 475 / 475 Weight 90.718 kg 91.2 kg Intake: IV 50 / 50 Ancef 2 GM Premix Inj 2 gm In 50 / 50 50 ml @ 0 mls/hr IV.SIG .K- [facility] Rx#:[id number] Oral 0 / 0 Anesthesia Amount 450 / 450 Output: Urine 100 / 100 Estimated Blood Loss 25 / 25 Other: Date of Last Bowel Movement 04/02/18 04/03/18 Weight On Admission 90.718 kg Narrative: GENERAL: 77 year old male in NAD CARDIOVASCULAR: Regular rate and rhythm. RESPIRATORY: No accessory muscle use. Clear to auscultation. Breath sounds equal bilaterally. GASTROINTESTINAL: Abdomen soft, non-tender, nondistended. Hepatic and splenic margins not palpable. MUSCULOSKELETAL: Extremities without clubbing, cyanosis, or edema. Right lower extremity externally rotated. Neurovascularly intact NEUROLOGICAL: Awake and alert. No obvious cranial nerve deficits. Motor grossly within normal limits. Five out of 5 muscle strength in the arms and legs. Right leg not assessed. Normal speech. PSYCHIATRIC: Appropriate mood and affect; insight and judgment normal. Results - Labs CBC & Chem 7: 04/04/18 03:44 04/04/18 03:44 Laboratory Results - last 24 hr 04/04/18 04/04/18 04/04/18 03:44 03:44 03:44 WBC 5.6 RBC 2.90 L Hgb 9.5 L Hct 27.3 L MCV 94.3 MCH 32.7 MCHC 34.7 RDW 14.5 Plt Count 121 L MPV 8.3 Neut % (Auto) 79.3 H Lymph % (Auto) 8.3 L [place] % (Auto) 10.2 H Eos % (Auto) 1.9 Baso % (Auto) 0.3 Neut # (Auto) 4.4 Lymph # (Auto) 0.5 L [place] # (Auto) 0.6 Eos # (Auto) 0.1 Baso # (Auto) 0.0 WBC Differential . Differential Comment Auto diff final Sodium 140 Potassium 4.7 Chloride 107 Carbon Dioxide 26.3 Anion Gap 9 BUN 23 H Creatinine 1.53 H Estimated GFR 45 L Random Glucose 118 H Calcium 8.0 L Blood Type O Positive Blood Type Recheck Antibody Screen Negative Assessment and Plan - Plan Right hip fracture S/P mechanical fall Orthopedics consulted - Dr. Florentin Caldera Plan for surgery by Dr Hernandez Pain well-controlled EKG normal Pain meds per pain scale Monitor h/H Asthma: home meds as needed monitor O2 sat, duo nebs as needed, oxygen by nasal cannula as needed keep oxygen saturation more than 94% So far satting well on room air at this time DVT ppx SCD/TEDs , chemical ppx per surgeon DC when cleared by ortho
--- NOTE | 2018-04-04 15:09 | XR ---
EXAM DATE: 04/04/2018 12:00 AM EDT AGE/SEX: 77 years / Male INDICATIONS: ORIF right femur fracture. CLINICAL DATA: This is the patient's subsequent encounter. Patient reports that signs and symptoms h ave been present for 2 days and indicates a pain score of Nonresponsive. MEDICAL/SURGICAL HISTORY: Non-responsive. Non-responsive. COMPARISON: No prior exams available for comparison. FINDINGS: 4 spot intraoperative fluoroscopic views of the femur demonstrate antegrade intramedullary cee distal interlocking screw and proximal fixation nail across the femoral neck. There is no dislocation. CONCLUSION: Postop right femur ORIF. Electronically signed by: Mike Lieberman MD 04/04/2018 3:07 PM EDT
--- NOTE | 2018-04-04 15:41 | ECG ---
Date Performed: 04/03/2018 Time Performed: 14:12:41 PTAGE: 77 years EKG: Sinus rhythm WITH FIRST DEGREE AV BLOCK NONSPECIFIC T-WAVE ABNORMALITY ABNORMAL ECG NO PREVIOUS TRACING DOCTOR: Roddy Crenshaw Interpretating Date/Time 04/04/2018 15:40:48
[2018-04-04] MEDS: Calcium/Vitamin D 250/125 MG Tablet PO SCH (17:15)
[2018-04-05] MEDS ORDERED: Enoxaparin Inj 30 MG/0.3 ML Syringe SQ SCH (01:00)
--- NOTE | 2018-04-05 06:41 | P.PNOP ---
Subjective Interval history: Resting comfortably with no new complaints. is bedside. Multiple questions are answered Physical Exam Vital signs: Vital Signs 04/04/18 07:45 04/04/18 13:26 04/04/18 13:30 Temperature 97.9 F 97.7 F Pulse Rate 75 93 H 94 H Respiratory Rate 18 21 20 Blood Pressure 138/79 134/62 144/61 H Pulse Oximetry 97 99 100 04/04/18 13:45 04/04/18 14:00 04/04/18 14:15 Temperature Pulse Rate 90 85 84 Respiratory Rate 24 24 20 Blood Pressure 121/57 L 115/61 115/57 L Pulse Oximetry 100 98 96 04/04/18 14:30 04/04/18 16:00 04/04/18 20:00 Temperature 97.4 F L 97.4 F L 98.2 F Pulse Rate 81 76 92 H Respiratory Rate 19 16 18 Blood Pressure 135/62 124/57 L 103/52 L Pulse Oximetry 96 97 94 L 04/05/18 00:00 04/05/18 04:00 Temperature 97.8 F 97.8 F Pulse Rate 72 83 Respiratory Rate 16 16 Blood Pressure 98/55 L 107/52 L Pulse Oximetry 95 93 L Intake & Output 04/04/18 04/04/18 04/05/18 06:59 18:59 06:59 Intake Total 0 / 0 2310 / 2310 200 / 200 Output Total 100 / 100 425 / 425 1025 / 1025 Balance -100 / -100 1885 / 1885 -825 / -825 Weight 91.2 kg 91.5 kg Intake: IV 1050 / 1050 200 / 200 NS Inj 1,000 ML @ 70 mls/hr IV. 1000 / 1000 CONT .[id number] [facility] Rx#:[id number] Ancef 2 GM Premix Inj 2 gm In 50 / 50 50 ml @ 0 mls/hr IV.SIG .STK- [facility] Rx#:[id number] Ancef Inj 1,000 MG In NS Inj 200 / 200 100 ML @ 200 mls/hr IV.SIG Q8H [facility] Rx#:[id number] Oral 0 / 0 810 / 810 Anesthesia Amount 450 / 450 Output: Urine 100 / 100 400 / 400 1025 / 1025 Estimated Blood Loss 25 / 25 Other: # Voids 1 # Incontinent Voids 1 Date of Last Bowel Movement 04/02/18 04/03/18 04/03/18 # Bowel Movements 0 Results - Labs CBC & Chem 7: 04/04/18 03:44 04/04/18 03:44 Laboratory Results - last 24 hr 04/04/18 03:44 Sodium 140 Potassium 4.7 Chloride 107 Anion Gap 9 - Imaging Impressions Femur X-Ray 04/04/18 00:00 CONCLUSION: Postop right femur ORIF. Assessment and Plan - Assessment and Plan Right intertrochanteric femur fracture status post IM nailing POD 1 Physical therapy weightbearing as tolerated Begin daily dressing changes POD 2 with Xeroform and Primapore Lovenox Incentive spirometer Case management for discharge planning for rehab versus home Follow-up appointment with Dr. Hernandez or PA in 2 weeks [employer] Prescription Drug Monitoring Database has been queried and verified prior to prescribing the controlled substance. Acute pain exception. This patient has normal, predicted, physiological, and time limited response to an adverse mechanical stimulus associated with surgery, trauma, or acute illness as described in my notes. There is a lack of alternative treatment options other than to include the prescribed narcotic treatment for this condition.
[2018-04-05] MEDS: Senna/Docusate Sodium 8.6/50 MG Tablet PO SCH (10:02)
[2018-04-05] MEDS: Calcium/Vitamin D 250/125 MG Tablet PO SCH ×2 (10:02→14:08)
[2018-04-05] MEDS: Budesonide-Formoterol 80/4.5 MCG 6.9 GM Inhaler INH SCH (10:04)
[2018-04-05] MEDS: Sod Chloride 0.9% Inj 1,000 ML IV.CONT SCH (10:19)
--- NOTE | 2018-04-05 11:41 | P.PN ---
Subjective Interval history: Patient resting comfortably in chair. in room with him. Pain is well controlled. Denies chest pain, SOB, nvd. Physical Exam Vital signs: Vital Signs 04/04/18 13:26 04/04/18 13:30 04/04/18 13:45 Temperature 97.7 F Pulse Rate 93 H 94 H 90 Respiratory Rate 21 20 24 Blood Pressure 134/62 144/61 H 121/57 L Pulse Oximetry 99 100 100 04/04/18 14:00 04/04/18 14:15 04/04/18 14:30 Temperature 97.4 F L Pulse Rate 85 84 81 Respiratory Rate 24 20 19 Blood Pressure 115/61 115/57 L 135/62 Pulse Oximetry 98 96 96 04/04/18 16:00 04/04/18 20:00 04/05/18 00:00 Temperature 97.4 F L 98.2 F 97.8 F Pulse Rate 76 92 H 72 Respiratory Rate 16 18 16 Blood Pressure 124/57 L 103/52 L 98/55 L Pulse Oximetry 97 94 L 95 04/05/18 04:00 04/05/18 08:00 Temperature 97.8 F 97.7 F Pulse Rate 83 84 Respiratory Rate 16 15 Blood Pressure 107/52 L 116/56 L Pulse Oximetry 93 L 98 Intake & Output 04/04/18 04/05/18 04/05/18 18:59 06:59 18:59 Intake Total 2310 / 2310 200 / 200 1000 / 1000 Output Total 425 / 425 1025 / 1025 Balance 1885 / 1885 -825 / -825 1000 / 1000 Weight 91.5 kg Intake: IV 1050 / 1050 200 / 200 1000 / 1000 NS Inj 1,000 ML @ 70 mls/hr IV. 1000 / 1000 1000 / 1000 CONT .[id number] [facility] Rx#:[id number] Ancef 2 GM Premix Inj 2 gm In 50 / 50 50 ml @ 0 mls/hr IV.SIG .STK- [facility] Rx#:[id number] Ancef Inj 1,000 MG In NS Inj 200 / 200 100 ML @ 200 mls/hr IV.SIG Q8H [facility] Rx#:[id number] Oral 810 / 810 Anesthesia Amount 450 / 450 Output: Urine 400 / 400 1025 / 1025 Estimated Blood Loss 25 / 25 Other: # Voids 1 # Incontinent Voids 1 Date of Last Bowel Movement 04/03/18 04/03/18 # Bowel Movements 0 Narrative: GENERAL: 77 year old male in NAD CARDIOVASCULAR: Regular rate and rhythm. RESPIRATORY: No accessory muscle use. Clear to auscultation. Breath sounds equal bilaterally. GASTROINTESTINAL: Abdomen soft, non-tender, nondistended. Hepatic and splenic margins not palpable. MUSCULOSKELETAL: Extremities without clubbing, cyanosis, or edema. Right lower extremity externally rotated. Neurovascularly intact NEUROLOGICAL: Awake and alert. No obvious cranial nerve deficits. Motor grossly within normal limits. Five out of 5 muscle strength in the arms and legs. Right leg not assessed. Normal speech. PSYCHIATRIC: Appropriate mood and affect; insight and judgment normal. Results - Labs CBC & Chem 7: 04/04/18 03:44 04/04/18 03:44 - Imaging Impressions Femur X-Ray 04/04/18 00:00 CONCLUSION: Postop right femur ORIF. Assessment and Plan - Assessment (1) Closed hip fracture Code(s): S72.009A - Fracture of unspecified part of neck of unspecified femur, initial encounter for closed fracture Status: Acute - Plan Right hip fracture, s/p surgery Orthopedics consulted - Dr. Florentin Caldera s/p surgery yesterday Pain well-controlled ortho recs Asthma: home meds as needed Code Status: full Discharge Planning: Surgery today, ortho clearance, PT, case management (1) Closed hip fracture Qualifiers: Qualified Code(s): S72.001A - Fracture of unspecified part of neck of right femur, initial encounter for closed fracture
--- NOTE | 2018-04-05 11:50 | P.DCO ---
- Diagnosis (1) Closed hip fracture Status: Acute (2) Closed intertrochanteric fracture of right femur Status: Acute - Physical Therapy Order: Evaluate and treat - Home Health Nursing Order: Medical education, Signs/symptoms of disease process, Medication education-adverse effect, Nursing assessment with vital signs - Case Management Consult Yes - Certification I have seen patient Michael Bowie on 04/05/18. My clinical findings support the need for the requested home health care services because: Limited mobility due to disease progression I certify that my clinical findings support that this patient is homebound because: Post-op weakness (1) Closed hip fracture Qualifiers: Encounter type: initial encounter Laterality: right Qualified Code(s): S72.001A - Fracture of unspecified part of neck of right femur, initial encounter for closed fracture
--- NOTE | 2018-04-05 17:22 | P.DS ---
Date of admission: 04/03/18 15:00 Primary care physician: UNKNOWN Brief History from admission: The patient 77-year-old male with a history of asthm who presents to the ED for evaluation of right hip injury. Patient states that he was in his usual state of health at a parking lot when his foot caught on the tire, and he tripped and fell onto his right hip. He denied hitting his head or LOC, but was not able to get up on his own. EVAC was called. Per EVAC, there was rotation of the right leg and has a lot of pain with any movement. Patient declined any pain medication stating that his pain is not bad unless he is moved. Patient states that currently his pain is 3 out of 10. Pain is 10/10 with movement. Hip XR in the ED revealed right femoral intertrochanteric fracture. He denies any numbness, drooling, weakness. No other injuries reported. No arm or leg pain. No back or neck pain. Patient will be admitted for surgical intervention. PMHx: Asthma Hx of prostate cancer Surgical History: Parathyroid surgery Social History: Denies alcohol use Denies tobacco use Denies other substance use Family History: Mother - Liver disease Father - CAD DS: Diagnosis - Discharge Diagnosis (1) Closed hip fracture Status: Acute (2) Closed intertrochanteric fracture of right femur Status: Acute DS: Medications - Discharge Medications Prescriptions: hydrocodone-acetaminophen [[place]] 1 tab PO Q4H #40 tab rivaroxaban [Xarelto] 10 mg PO DAILY #14 tab DS: Summary Hospital Course: Right hip fracture, s/p surgery Orthopedics consulted - Dr. Florentin Caldera s/p Right hip reduction and intramedullary nail fixationby Dr Mckeon 04/04/18 Pain well-controlled ortho recs H.H stable Asthma: home meds as needed Improved cleared by surgery for DC DC to snf in stable condition to follow up as OP with PCP and consultants - Time Spent with Patient Total time spent providing and/or coordinating discharge services: Greater than 30 minutes - Quality: VTE Deep Vein Thrombosis/Pulmonary Embolism Present on Admission: Yes Exam Vital signs: Vital Signs 04/04/18 20:00 04/05/18 00:00 04/05/18 04:00 Temperature 98.2 F 97.8 F 97.8 F Pulse Rate 92 H 72 83 Respiratory Rate 18 16 16 Blood Pressure 103/52 L 98/55 L 107/52 L Pulse Oximetry 94 L 95 93 L 04/05/18 08:00 04/05/18 12:00 04/05/18 16:00 Temperature 97.7 F 97.3 F L 98 F Pulse Rate 84 86 92 H Respiratory Rate 15 16 16 Blood Pressure 116/56 L 122/56 L 125/62 Pulse Oximetry 98 97 96 Intake & Output 04/04/18 04/05/18 04/05/18 18:59 06:59 18:59 Intake Total 2310 / 2310 200 / 200 1000 / 1000 Output Total 425 / 425 1025 / 1025 Balance 1885 / 1885 -825 / -825 1000 / 1000 Weight 91.5 kg Intake: IV 1050 / 1050 200 / 200 1000 / 1000 NS Inj 1,000 ML @ 70 mls/hr IV. 1000 / 1000 1000 / 1000 CONT .[id number] [facility] Rx#:[id number] Ancef 2 GM Premix Inj 2 gm In 50 / 50 50 ml @ 0 mls/hr IV.SIG .STK- [facility] Rx#:[id number] Ancef Inj 1,000 MG In NS Inj 200 / 200 100 ML @ 200 mls/hr IV.SIG Q8H [facility] Rx#:[id number] Oral 810 / 810 Anesthesia Amount 450 / 450 Output: Urine 400 / 400 1025 / 1025 Estimated Blood Loss 25 / 25 Other: # Voids 1 # Incontinent Voids 1 Date of Last Bowel Movement 04/03/18 04/03/18 04/03/18 # Bowel Movements 0 Narrative: GENERAL: 77 year old male in NAD CARDIOVASCULAR: Regular rate and rhythm. RESPIRATORY: No accessory muscle use. Clear to auscultation. Breath sounds equal bilaterally. GASTROINTESTINAL: Abdomen soft, non-tender, nondistended. Hepatic and splenic margins not palpable. MUSCULOSKELETAL: Extremities without clubbing, cyanosis, or edema. Right lower extremity externally rotated. Neurovascularly intact NEUROLOGICAL: Awake and alert. No obvious cranial nerve deficits. Motor grossly within normal limits. Five out of 5 muscle strength in the arms and legs. Right leg not assessed. Normal speech. PSYCHIATRIC: Appropriate mood and affect; insight and judgment normal. Results Procedures completed during hospitalization: s/p Right hip reduction and intramedullary nail fixationby Dr Mckeon 04/04/18 Labs on day of discharge: Labs from last 24 hours 04/05/18 03:56 Vit D 1,25-Dihydroxy Pending - Impressions ITS Impressions Chest X-Ray 04/03/18 13:11 CONCLUSION: 1. Negative portable chest status post trauma. Hip X-Ray 04/03/18 13:11 CONCLUSION: 1. Right femoral intertrochanteric fracture, as above. Femur X-Ray 04/04/18 00:00 CONCLUSION: Postop right femur ORIF. Discharge Plan - Discharge Disposition Patient Disposition: Discharge to SNF - Discharge Condition Condition: Stable - Discharge Order Discharge Orders: Discharge Order (Routine); Ordered 04/05/18 Ordered By: Camilla Dunn - Discharge Details Anticipated Discharge Date: 04/05/18 - Physicians Team Primary Care Provider: UNKNOWN, Attending Provider: Camilla Dunn Other Providers: Florentin Caldera MD ; Lucio Mckeon MD ; [employer], [place] ; [facility],Agency
== END 2018-04-05 16:28 ==
LOC: NEPC 12:47 → NEDA 15:00 → N06 15:22
PROVIDERS: ADMIT Hospitalist; ATTEND Hospitalist
PROC: ORIFHIP (2018-04-04 12:07)

== ENCOUNTER 2018-04-06 17:13 | Observation (INO) ==
--- NOTE | 2018-04-06 18:39 | ED ---
HPI General Chief Complaint: Recheck/Abnormal Lab/Rx Stated Complaint: Poss Blood Transfusion Time Seen by Provider: 04/06/18 18:22 History of Present Illness HPI narrative: This is a 77-year-old male with a history of right hip fracture and repair on 04/03/2018, who presents here from his rehabilitation center for evaluation for abnormal CBC. According to the patient they did blood work and found his hemoglobin to be 6.2. They sent him here for evaluation. Patient denies any melena or blood in his stool. Patient denies any dizziness or shortness of breath. He has no complaints at this time. Related Data Home Medications Medication Instructions Recorded Confirmed fluticasone-salmeterol [Advair 1 puff INHALATION BID 04/03/18 04/06/18 Diskus] magnesium citrate 1.745 gm PO DAILY PRN 04/06/18 04/06/18 Previous Rx's Medication Instructions Recorded hydrocodone-acetaminophen [[place]] 1 tab PO Q4H #40 tab 04/04/18 rivaroxaban [Xarelto] 10 mg PO DAILY #14 tab 04/04/18 Allergies Allergy/AdvReac Type Severity Reaction Status Date / Time No Known Allergies Allergy Unverified 04/03/18 13:11 Review of Systems ROS: all other systems reviewed are negative Constitutional Reports system reviewed and no additional complaints, except as docu Eyes Denies blurry vision and Denies diplopia ENT Denies dizziness, Denies headache(s) and Denies epistaxis Cardiovascular Denies chest pain, Denies diaphoresis, Denies rapid heart rate, Denies lightheadedness and Denies palpitations Respiratory Denies dyspnea Gastrointestinal Denies melena, Denies hematochezia, Denies nausea and Denies vomiting Genitourinary Denies hematuria Musculoskeletal Reports other (Right hip pain secondary to recent surgery not worsening.) Neurologic Denies confusion, Denies dizziness and Denies headache(s) PMFSH Family History Family History Other Family history non-contributory Social History Social History Substance History: No History of Abuse Second Hand Smoke Exposure: No Smoking Status: Unknown if ever smoked How Often Do You Have a Drink Containing Alcohol: Unable to Obtain Immunization History Tetanus Immunization: Unsure Exam Narrative Exam Narrative: GENERAL: Well-developed well-nourished male in no acute respiratory distress. SKIN: Focused skin assessment warm/dry. HEAD: Atraumatic. Normocephalic. EYES: No pale conjunctiva. No scleral icterus. No injection or drainage. ENT: No nasal bleeding or discharge. Mucous membranes pink and moist. NECK: Trachea midline. Supple. CARDIOVASCULAR: Regular rate and rhythm. No murmur appreciated. RESPIRATORY: No accessory muscle use. Clear to auscultation. Breath sounds equal bilaterally. GASTROINTESTINAL: Abdomen soft, non-tender, nondistended. Hepatic and splenic margins not palpable. MUSCULOSKELETAL: No obvious deformities. No clubbing. No cyanosis. No edema. RECTAL EXAM: Patient refusing rectal exam at the time of my examination. NEUROLOGICAL: Awake and alert. No obvious cranial nerve deficits. Motor grossly within normal limits. Normal speech. Course Initial Documented Vital Signs Temperature 97.6 F 04/06/18 18:15 Pulse Rate 91 H 04/06/18 18:15 Respiratory Rate 20 04/06/18 18:15 Blood Pressure 169/74 H 04/06/18 18:15 Pulse Oximetry 97 04/06/18 18:15 Last Documented Vital Signs Temperature 97.6 F 04/06/18 18:15 Pulse Rate 94 H 04/06/18 19:12 Respiratory Rate 18 04/06/18 19:12 Blood Pressure 161/70 H 04/06/18 19:12 Pulse Oximetry 96 04/06/18 19:12 Medical Decision Making MDM Narrative Medical decision making narrative: 77-year-old male status post hip fracture repair 3 days ago, presents here from the rehab center for reported low hemoglobin. Patient's hemoglobin was reported at 6.2. Repeat hemoglobin here is 6.3. This is down from 9.2 when he was discharged. Rectal examination shows dark brown stool that is trace heme positive. Patient is on Xarelto. He has been typed and crossed for 2 units of packed red blood cells. Patient was discussed with Dr. Brigid Dhaliwal, [facility], [place])ist, who agrees with the observation admission. He will be transfused 2 units of packed red blood cells. Medical Screen Exam Complete: Yes Emergency Medical Condition: Yes Differential Diagnosis Differential Diagnosis: Anemia versus laboratory error versus internal hemorrhage Lab Data Result diagrams: 04/06/18 18:30 Lab Results 04/06/18 Range/Units 18:30 WBC 6.6 (4.0-11.0) th/mm3 RBC 1.98 L (4.50-5.90) mil/mm3 Hgb 6.3 L* (13.0-17.0) gm/dL Hct 19.0 L* (39.0-51.0) % MCV 96.0 (80.0-100.0) fL MCH 31.9 (27.0-34.0) pg MCHC 33.2 (32.0-36.0) % RDW 14.8 (11.6-17.2) % Plt Count 133 L (150-450) th/mm3 MPV 8.4 (7.0-11.0) fL Prelim Diff (Auto) Slide review pending Neut % (Auto) 80.6 H (16.0-70.0) % Lymph % (Auto) 8.1 L (9.0-44.0) % [place] % (Auto) 9.6 H (0.0-8.0) % Eos % (Auto) 1.2 (0.0-4.0) % Baso % (Auto) 0.5 (0.0-2.0) % Neut # (Auto) 5.3 (1.8-7.7) th/mm3 Lymph # (Auto) 0.5 L (1.0-4.8) th/mm3 [place] # (Auto) 0.6 (0.0-0.9) th/mm3 Eos # (Auto) 0.1 (0.0-0.4) th/mm3 Baso # (Auto) 0.0 (0.0-0.2) th/mm3 WBC Differential . Diff Scan Auto diff confirmed Differential Comment . Platelet Estimate Low L (Normal) Platelet Morphology Normal (Normal) RBC Morphology Normal (Normal) Discharge Plan Discharge Disposition Patient Disposition: 30 Still Patient Discharge Details Diagnosis: Anemia, Recent fracture of hip, Anticoagulated Physicians Team ED Provider: Lei Contreras Primary Care Provider: Asad De La Cruz Rxs /Orders / Referrals /Forms Prescriptions: No Action fluticasone-salmeterol [Advair Diskus] 100-50 mcg/dose Blister With Device 1 puff INHALATION BID RF: 0 hydrocodone-acetaminophen [[place]] 7.5-325 mg Tablet 1 tab PO Q4H Qty: 40 RF: 0 rivaroxaban [Xarelto] 10 mg Tablet 10 mg PO DAILY Qty: 14 RF: 0 magnesium citrate Solution 1.745 gm PO DAILY PRN (Reason: Constipation) RF: 0 Discharge Interventions Interventions: Vital Signs Last Done: 04/06/18 19:12 Status ED Status: With Doctor
[2018-04-06 18:42] LABS: Baso % (Auto) 0.5 % (0.0-2.0); Eos # (Auto) 0.1 th/mm3 (0.0-0.4); Eos % (Auto) 1.2 % (0.0-4.0); Lymph # (Auto) 0.5 th/mm3 (1.0-4.8); Lymph % (Auto) 8.1 % (9.0-44.0); Mean Corpuscular HGB Conc 33.2 % (32.0-36.0); Mean Corpuscular Hemoglobin 31.9 pg (27.0-34.0); Mean Platelet Volume 8.4 fL (7.0-11.0); Mono # (Auto) 0.6 th/mm3 (0.0-0.9); Mono % (Auto) 9.6 % (0.0-8.0); Neut # (Auto) 5.3 th/mm3 (1.8-7.7); Neut % (Auto) 80.6 % (16.0-70.0); Platelet Count 133 th/mm3 (150-450); Red Blood Count 1.98 mil/mm3 (4.50-5.90); Red Cell Distribution Width 14.8 % (11.6-17.2); White Blood Count 6.6 th/mm3 (4.0-11.0)
[2018-04-06 18:52] LABS: Hemoglobin 6.3 gm/dL (13.0-17.0)
[2018-04-06 19:06] LABS: Platelet Morphology Normal (Normal); RBC Morphology Normal (Normal)
[2018-04-06 20:30] LABS: Calcium 8.1 mg/dL (8.5-10.1); Carbon Dioxide 25.1 meq/L (21.0-32.0); Potassium 4.6 meq/L (3.5-5.1)
[2018-04-06] MEDS ORDERED: Acetaminophen 325 MG Tablet PO PRN (20:54)
[2018-04-06] MEDS ORDERED: Bisacodyl 10 MG Supp RECTAL PRN (20:54)
--- NOTE | 2018-04-06 21:03 | P.HP ---
History of Present Illness Service: [facility] Primary Care Physician: Asad De La Cruz DO History of Present Illness: 77-year-old male with a past medical history significant for asthma presents to the emergency department for the evaluation of anemia. The patient is status post right hip surgery on 04/04/18 and was in rehab when routine lab work showed a significant drop in his hemoglobin. The patient reports that he has been feeling more tired than normal but denies dizziness/lightheadedness/ palpitations. No fever/chills. Is participating physical therapy. No chest pain or shortness of breath. No abdominal pain. No nausea/vomiting/diarrhea. No lateralizing signs/symptoms. Review of Systems All other systems reviewed negative except as stated in HPI [facility] - History History Provided By: Patient - Medical History Medical History: Medical History (Last Reviewed 04/06/18 @ 20:58 by Brigid Dhaliwal MD) Asthma - Surgical History Surgical History: Surgical History (Last Updated 04/06/18 @ 20:59 by Brigid Dhalwial MD) History of hip surgery History of parathyroid surgery No history of previous surgery - Family History Family History: Family History (Last Updated 04/04/18 @ 13:12 by Lucio Mckeon MD) Other Family history non-contributory - Tobacco History Second Hand Smoke Exposure: No Smoking Status: Unknown if ever smoked - Alcohol History How Often Do You Have a Drink Containing Alcohol: Unable to Obtain - Substance Use History Substance History: No History of Abuse - Immunization History Tetanus Immunization: Unsure Medications and Allergies Active Medications: Active Medications Acetaminophen (Tylenol) 650 mg PO Q4H PRN PRN Reason: Temp > 100.4 Hydrocodone Bitart/Acetaminophen ([place] 7.5/325) 1 tab PO Q4H [place] Al Hydroxide/Mg Hydroxide (Milk Of Magnesia Liq) 30 ml PO Q12H PRN PRN Reason: Mild Constipation Bisacodyl (Dulcolax Supp) 10 mg RECTAL DAILY PRN PRN Reason: SEVERE CONSITIPATION Lactulose (Lactulose Liq) 30 ml PO DAILY PRN PRN Reason: SEVERE CONSITIPATION Non-Formulary Medication (Fluticasone-Salmeterol [Advair Diskus]) 1 puff INHALATION BID [place] Ondansetron HCl (Zofran Inj) 4 mg IV.PUSH Q6H PRN PRN Reason: NAUSEA OR VOMITING Rivaroxaban (Xarelto) 10 mg PO DAILY [facility] Senna/Docusate Sodium (Kinjal-Colace) 1 tab PO BID [facility] Sennosides (Senokot) 17.2 mg PO Q12H PRN PRN Reason: Moderate Constipation Allergies Allergy/AdvReac Type Severity Reaction Status Date / Time No Known Allergies Allergy Unverified 04/03/18 13:11 Home Medications Medication Instructions Recorded Confirmed Type fluticasone-salmeterol [Advair 1 puff INHALATION BID 04/03/18 04/06/18 History Diskus] magnesium citrate 1.745 gm PO DAILY PRN 04/06/18 04/06/18 History Exam Vital signs: Vital Signs 04/06/18 18:15 04/06/18 18:48 04/06/18 19:12 Temperature 97.6 F Pulse Rate 91 H 95 H 94 H Respiratory Rate 20 24 18 Blood Pressure 169/74 H 169/74 H 161/70 H Pulse Oximetry 97 92 L 96 Intake & Output 04/06/18 04/06/18 04/07/18 06:59 18:59 06:59 Weight 89.811 kg Narrative: Gen.: No acute distress Head: Normocephalic. Atraumatic. EENT: Pupils equal round and reactive to light. Nose without drainage. Airway intact. Throat without injection. Cardiovascular: Regular rate and rhythm. No murmurs, rubs or gallops. Respiratory: Lungs clear to auscultation bilaterally. No wheezes or rhonchi. Abdomen: Soft, nontender, nondistended. No peritoneal signs. Musculoskeletal: No gross deformities. No edema. Skin: No obvious rashes or erythema. Neuro: Sensory and motor grossly intact. Cranial nerves II through XII grossly intact. Results - Labs CBC & Chem 7: 04/06/18 18:30 04/06/18 19:01 Labs: Laboratory Results - last 24 hr 04/06/18 04/06/18 04/06/18 18:10 18:30 19:01 WBC 6.6 RBC 1.98 L Hgb 6.3 L* Hct 19.0 L* MCV 96.0 MCH 31.9 MCHC 33.2 RDW 14.8 Plt Count 133 L MPV 8.4 Prelim Diff (Auto) Slide review pending Neut % (Auto) 80.6 H Lymph % (Auto) 8.1 L [place] % (Auto) 9.6 H Eos % (Auto) 1.2 Baso % (Auto) 0.5 Neut # (Auto) 5.3 Lymph # (Auto) 0.5 L [place] # (Auto) 0.6 Eos # (Auto) 0.1 Baso # (Auto) 0.0 WBC Differential . Diff Scan Auto diff confirmed Differential Comment . Platelet Estimate Low L Platelet Morphology Normal RBC Morphology Normal Sodium 138 Potassium 4.6 Chloride 105 Carbon Dioxide 25.1 Anion Gap 8 BUN 39 H Creatinine 1.75 H Estimated GFR 38 L Random Glucose 142 H Calcium 8.1 L MTS Gel Crossmatch See Detail Caprini VTE Risk Assessment Caprini VTE Risk Assessment: Moderate/High Risk (score >= 2) Caprini Risk Assessment Model: Point Value = 1 Point Value = 2 Point Value = 3 Point Value = 5 Age 41-60 Minor surgery BMI > 25 kg/m2 Swollen legs Varicose veins or History of unexplained or recurrent spontaneous Oral contraceptives or hormone replacement Sepsis (< 1 month) Serious lung disease, including pneumonia (< 1 month) Abnormal pulmonary function Acute myocardial infarction Congestive heart failure (< 1 month) History of inflammatory bowel disease Medical patient at bed rest Age 61-74 Arthroscopic surgery Major open surgery (> 45 min) Laparoscopic surgery (> 45 min) Malignancy Confined to bed (> 72 hours) Immobilizing plaster cast Central venous access Age >= 75 History of VTE Family history of VTE Factor V Leiden Prothrombin [id number] Lupus anticoagulant Anticardiolipin antibodies Elevated serum homocysteine Heparin-induced thrombocytopenia Other congenital or acquired thrombophilia Stroke (< 1 month) Elective arthroplasty Hip, pelvis, or leg fracture Acute spinal cord injury (< 1 month) Prophylaxis Regimen: Total Risk Factor Score Risk Level Prophylaxis Regimen 0-1 Low Early ambulation 2 Moderate Order ONE of the following: *Sequential Compression Device (SCD) *Heparin 5000 units SQ BID 3-4 Higher Order ONE of the following medications: *Heparin 5000 units SQ TID *Enoxaparin/Lovenox 40 mg SQ daily (WT < 150 kg, CrCl > 30 mL/min) *Enoxaparin/Lovenox 30 mg SQ daily (WT < 150 kg, CrCl > 10-29 mL/min) *Enoxaparin/Lovenox 30 mg SQ BID (WT < 150 kg, CrCl > 30 mL/min) AND/OR *Sequential Compression Device (SCD) 5 or more Highest Order ONE of the following medications: *Heparin 5000 units SQ TID (Preferred with Epidurals) *Enoxaparin/Lovenox 40 mg SQ daily (WT < 150 kg, CrCl > 30 mL/min) *Enoxaparin/Lovenox 30 mg SQ daily (WT < 150 kg, CrCl > 10-29 mL/min) *Enoxaparin/Lovenox 30 mg SQ BID (WT < 150 kg, CrCl > 30 mL/min) AND *Sequential Compression Device (SCD) Assessment and Plan - Plan Assessment/plan: 1. Anemia H&H 6.3/19.9 Likely postoperative anemia Use 2 units packed red blood cells Repeat CBC in a.m. Patient very faintly Hemoccult positive in the ED Recommend outpatient CBC to assess for further blood loss 2. Status post right hip surgery Patient is status post right hip fracture and repair on 04/03/18 Physical therapy consulted Continue postoperative Xarelto for DVT prophylaxis Anticipate discharge back to rehab 3. Chronic kidney disease Creatinine 1.75, baseline for the patient Monitor renal function FEN Heart healthy diet Electrolytes: Monitor and replete as needed Xarelto
[2018-04-06] MEDS: Senna/Docusate Sodium 8.6/50 MG Tablet PO SCH (22:56)
[2018-04-07 06:05] LABS: Baso % (Auto) 0.3 % (0.0-2.0); Eos # (Auto) 0.2 th/mm3 (0.0-0.4); Hematocrit 25.4 % (39.0-51.0); Hemoglobin 8.6 gm/dL (13.0-17.0); Lymph # (Auto) 0.5 th/mm3 (1.0-4.8); Lymph % (Auto) 9.1 % (9.0-44.0); Mean Corpuscular Volume 94.1 fL (80.0-100.0); Mean Platelet Volume 7.9 fL (7.0-11.0); Mono # (Auto) 0.5 th/mm3 (0.0-0.9); Neut # (Auto) 4.4 th/mm3 (1.8-7.7); Neut % (Auto) 78.6 % (16.0-70.0); Platelet Count 122 th/mm3 (150-450); Red Cell Distribution Width 14.9 % (11.6-17.2); White Blood Count 5.7 th/mm3 (4.0-11.0)
[2018-04-07 06:25] LABS: Calcium 7.9 mg/dL (8.5-10.1); Carbon Dioxide 26.5 meq/L (21.0-32.0); Potassium 4.3 meq/L (3.5-5.1)
--- NOTE | 2018-04-07 08:20 | P.PNOP ---
Subjective Interval history: Readmitted due to anemia Physical Exam Vital signs: Vital Signs 04/06/18 18:15 04/06/18 18:48 04/06/18 19:12 Temperature 97.6 F Pulse Rate 91 H 95 H 94 H Respiratory Rate 20 24 18 Blood Pressure 169/74 H 169/74 H 161/70 H Pulse Oximetry 97 92 L 96 04/06/18 22:34 04/06/18 22:58 04/07/18 00:00 Temperature 98.5 F 98.1 F 98.0 F Pulse Rate 93 H 95 H 91 H Respiratory Rate 18 18 16 Blood Pressure 140/63 139/63 140/64 Pulse Oximetry 94 L 96 95 04/07/18 01:35 04/07/18 01:55 04/07/18 02:14 Temperature 98.3 F 98.3 F 98.4 F Pulse Rate 91 H 90 89 Respiratory Rate 18 18 18 Blood Pressure 132/65 143/65 H 140/64 Pulse Oximetry 95 94 L 95 04/07/18 03:35 Temperature 98.1 F Pulse Rate 94 H Respiratory Rate 16 Blood Pressure 149/69 H Pulse Oximetry 95 Intake & Output 04/06/18 04/07/18 04/07/18 18:59 06:59 18:59 Intake Total 800 / 800 Balance 800 / 800 Weight 89.811 kg 89.811 kg Intake: Intake (Blood Product) Amt 800 / 800 Rbc As-3 Leukoreduced Unit 400 / 400 [id number] Rbc As-3 Leukoreduced Unit 400 / 400 [id number] Other: # Voids 2 Weight On Admission 89.811 kg Narrative: Left lower extremity: clean dry dressings and intact. distally NVI Results - Labs CBC & Chem 7: 04/07/18 05:50 04/07/18 05:50 Laboratory Results - last 24 hr 04/06/18 04/06/18 04/06/18 18:10 18:30 19:01 WBC 6.6 RBC 1.98 L Hgb 6.3 L* Hct 19.0 L* MCV 96.0 MCH 31.9 MCHC 33.2 RDW 14.8 Plt Count 133 L MPV 8.4 Prelim Diff (Auto) Slide review pending Neut % (Auto) 80.6 H Lymph % (Auto) 8.1 L [place] % (Auto) 9.6 H Eos % (Auto) 1.2 Baso % (Auto) 0.5 Neut # (Auto) 5.3 Lymph # (Auto) 0.5 L [place] # (Auto) 0.6 Eos # (Auto) 0.1 Baso # (Auto) 0.0 WBC Differential . Diff Scan Auto diff confirmed Differential Comment . Platelet Estimate Low L Platelet Morphology Normal RBC Morphology Normal Sodium 138 Potassium 4.6 Chloride 105 Carbon Dioxide 25.1 Anion Gap 8 BUN 39 H Creatinine 1.75 H Estimated GFR 38 L Random Glucose 142 H Calcium 8.1 L MTS Gel Crossmatch See Detail 04/07/18 04/07/18 05:50 05:50 WBC 5.7 RBC 2.70 L Hgb 8.6 L D Hct 25.4 L MCV 94.1 MCH 32.0 MCHC 34.0 RDW 14.9 Plt Count 122 L MPV 7.9 Prelim Diff (Auto) Neut % (Auto) 78.6 H Lymph % (Auto) 9.1 [place] % (Auto) 9.0 H Eos % (Auto) 3.0 Baso % (Auto) 0.3 Neut # (Auto) 4.4 Lymph # (Auto) 0.5 L [place] # (Auto) 0.5 Eos # (Auto) 0.2 Baso # (Auto) 0.0 WBC Differential . Diff Scan Differential Comment Auto diff final Platelet Estimate Platelet Morphology RBC Morphology Sodium 138 Potassium 4.3 Chloride 105 Carbon Dioxide 26.5 Anion Gap 7 BUN 37 H Creatinine 1.44 H Estimated GFR 48 L Random Glucose 101 Calcium 7.9 L MTS Gel Crossmatch Assessment and Plan - Assessment and Plan Right intertrochanteric femur fracture status post IM nailing POD 4 Physical therapy weightbearing as tolerated daily dressing changes with Xeroform and Prim[place] Lovenox Incentive spirometer LISA diaz and SCD medical management Follow-up appointment with Dr. Hernandez or PA in 10-14 days
[2018-04-07 08:38] VITALS: O2SAT 96
[2018-04-07] MEDS ORDERED: Budesonide-Formoterol 80/4.5 MCG 6.9 GM Inhaler INH SCH (09:00)
[2018-04-07] MEDS ORDERED: Rivaroxaban 10 MG Tablet PO SCH (09:00)
[2018-04-07] MEDS: Senna/Docusate Sodium 8.6/50 MG Tablet PO SCH (09:28)
--- NOTE | 2018-04-07 09:49 | P.DS ---
Date of admission: 04/06/18 19:34 Primary care physician: Asad De La Cruz DO Anticipated date of discharge: 04/07/18 Brief History from admission: 77-year-old male with a past medical history significant for asthma presents to the emergency department for the evaluation of anemia. The patient is status post right hip surgery on 04/04/18 and was in rehab when routine lab work showed a significant drop in his hemoglobin. The patient reports that he has been feeling more tired than normal but denies dizziness/lightheadedness/ palpitations. No fever/chills. Is participating physical therapy. No chest pain or shortness of breath. No abdominal pain. No nausea/vomiting/diarrhea. No lateralizing signs/symptoms. DS: Summary Hospital Course: Sent from rehab for post op anemia, SP STEVE on 04/03/18, 2units of PRBC given seen by ortho. Xarelto stopped, Lovenox started per ortho. DC back to rehab, monitor CBC - Time Spent with Patient Total time spent providing and/or coordinating discharge services: 20 Less than 30 minutes - Quality: AMI Clinical Trial Participant: No - Quality: Stroke Symptom Onset Unknown: No - Quality: VTE Deep Vein Thrombosis/Pulmonary Embolism Present on Admission: No Exam Vital signs: Vital Signs 04/06/18 18:15 04/06/18 18:48 04/06/18 19:12 Temperature 97.6 F Pulse Rate 91 H 95 H 94 H Respiratory Rate 20 24 18 Blood Pressure 169/74 H 169/74 H 161/70 H Pulse Oximetry 97 92 L 96 04/06/18 22:34 04/06/18 22:58 04/07/18 00:00 Temperature 98.5 F 98.1 F 98.0 F Pulse Rate 93 H 95 H 91 H Respiratory Rate 18 18 16 Blood Pressure 140/63 139/63 140/64 Pulse Oximetry 94 L 96 95 04/07/18 01:35 04/07/18 01:55 04/07/18 02:14 Temperature 98.3 F 98.3 F 98.4 F Pulse Rate 91 H 90 89 Respiratory Rate 18 18 18 Blood Pressure 132/65 143/65 H 140/64 Pulse Oximetry 95 94 L 95 04/07/18 03:35 04/07/18 08:36 Temperature 98.1 F 98.6 F Pulse Rate 94 H 85 Respiratory Rate 16 Blood Pressure 149/69 H 155/66 H Pulse Oximetry 95 96 Intake & Output 04/06/18 04/07/18 04/07/18 18:59 06:59 18:59 Intake Total 800 / 800 Balance 800 / 800 Weight 89.811 kg 89.811 kg Intake: Intake (Blood Product) Amt 800 / 800 Rbc As-3 Leukoreduced Unit 400 / 400 [id number] Rbc As-3 Leukoreduced Unit 400 / 400 [id number] Other: # Voids 2 Weight On Admission 89.811 kg - Constitutional no acute distress - Routine HEENT Exam Eye: Present: PERRL - Routine Respiratory Exam Present: CTA bilaterally - Routine Cardiovascular Exam Present: S1, S2 - Routine Skin Exam Present: warm - Routine Neurological Exam Present: alert, oriented X3 Results Procedures completed during hospitalization: n/a Labs on day of discharge: Labs from last 24 hours 04/07/18 04/07/18 04/06/18 05:50 05:50 19:01 WBC 5.7 RBC 2.70 L Hgb 8.6 L D Hct 25.4 L MCV 94.1 MCH 32.0 MCHC 34.0 RDW 14.9 Plt Count 122 L MPV 7.9 Prelim Diff (Auto) Neut % (Auto) 78.6 H Lymph % (Auto) 9.1 [place] % (Auto) 9.0 H Eos % (Auto) 3.0 Baso % (Auto) 0.3 Neut # (Auto) 4.4 Lymph # (Auto) 0.5 L [place] # (Auto) 0.5 Eos # (Auto) 0.2 Baso # (Auto) 0.0 WBC Differential . Diff Scan Differential Comment Auto diff final Platelet Estimate Platelet Morphology RBC Morphology Sodium 138 138 Potassium 4.3 4.6 Chloride 105 105 Carbon Dioxide 26.5 25.1 Anion Gap 7 8 BUN 37 H 39 H Creatinine 1.44 H 1.75 H Estimated GFR 48 L 38 L Random Glucose 101 142 H Calcium 7.9 L 8.1 L MTS Gel Crossmatch 04/06/18 04/06/18 18:30 18:10 WBC 6.6 RBC 1.98 L Hgb 6.3 L* Hct 19.0 L* MCV 96.0 MCH 31.9 MCHC 33.2 RDW 14.8 Plt Count 133 L MPV 8.4 Prelim Diff (Auto) Slide review pending Neut % (Auto) 80.6 H Lymph % (Auto) 8.1 L [place] % (Auto) 9.6 H Eos % (Auto) 1.2 Baso % (Auto) 0.5 Neut # (Auto) 5.3 Lymph # (Auto) 0.5 L [place] # (Auto) 0.6 Eos # (Auto) 0.1 Baso # (Auto) 0.0 WBC Differential . Diff Scan Auto diff confirmed Differential Comment . Platelet Estimate Low L Platelet Morphology Normal RBC Morphology Normal Sodium Potassium Chloride Carbon Dioxide Anion Gap BUN Creatinine Estimated GFR Random Glucose Calcium MTS Gel Crossmatch See Detail Discharge Plan - Discharge Disposition Patient Disposition: [facility] Rehab Inpatient - Discharge Condition Condition: Good - Discharge Order Discharge Orders: Discharge Order (Routine); Ordered 04/07/18 Ordered By: Carol Cramer Hospitalist Clear for Discharge (Routine); Ordered 04/07/18 Ordered By: Asad De La Cruz - Discharge Details Anticipated Discharge Date: 04/07/18 Discharge Comment: Dc back to rehab - Physicians Team Primary Care Provider: Asad De La Cruz Attending Provider: Asad De La Cruz Other Providers: [facility],Insurance ; Lucio Mckeon MD
[2018-04-07 12:27] VITALS: BP 134/64; PULSE 89; RESP 20; TEMP 98.3
[2018-04-08] MEDS ORDERED: Enoxaparin Inj 40 MG/0.4 ML Syringe SQ SCH (09:00)
== END 2018-04-07 13:48 ==
LOC: NEPC 17:13 → NEDA 17:13 → NEPFCDU 21:34
PROVIDERS: ADMIT Family Medicine; ATTEND Family Medicine